=== PATIENT | male | born 1950 | race Two or more races ===

== ENCOUNTER 2017-02-21 01:15 | Inpatient (IN) | payer OTHER ==
[~2017-02-21] VITALS: Ht 175.3 cm; Wt 104.0 kg
[2017-02-21] MEDS ORDERED: hydrALAZINE HCL 20 MG/ML VL IV ONE (01:45)
[2017-02-21] MEDS ORDERED: cloNIDine HCL 0.1 MG TAB PO ONE (03:00)
[2017-02-21] MEDS ORDERED: LISINOPRIL 10 MG TAB PO ONE (03:00)
[2017-02-21] MEDS ORDERED: amLODIPine BESYLATE 5 MG TAB PO ONE (03:00)
[2017-02-21 03:12] LABS: Basophils # (auto) 0 uL; Basophils % (auto) 0.6 % (0.0-2.0); CONDITION Y; Eosinophils # (auto) 0.2 uL; Eosinophils % (auto) 3.3 % (0.0-7.0); Hematocrit 44.6 % (41.0-53.0); Hemoglobin 14.8 g/dL (13.5-17.5); Lymphocytes # (auto) 1.3 uL; Lymphocytes % (auto) 18.6 % (10.0-50.0); Mean Corpuscular Hemoglobin 29.3 pg (28.0-32.0); Mean Corpuscular Hgb Conc. 33.2 g/dL (32.0-36.0); Mean Corpuscular Volume 88.3 fL (80.0-100.0); Mean Platelet Volume 8.3 fL (7.4-10.4); Monocytes # (auto) 0.6 uL; Neutrophils # (auto) 4.9 uL; Neutrophils % (auto) 69.5 % (37.0-80.0); Platelet Count (auto) 298 10^3/uL (140-450); Red Cell Distribution Width 14.6 % (11.6-16.0)
[2017-02-21 03:27] LABS: INR 1.05 (0.9-1.15); Partial Thromboplastin Time 28.1 sec (22.64-33.71); Prothrombin Time 11.4 sec (9.37-12.3)
[2017-02-21 03:29] LABS: Albumin 3.5 g/dL (3.4-5.0); BUN/Creatinine Ratio 10.1; Calcium 8.4 mg/dL (8.5-10.1); Magnesium 2.1 mg/dL (1.6-2.6); Potassium 3.3 mmol/L (3.5-5.1)
[2017-02-21 03:36] LABS: Bilirubin, Total 0.8 mg/dL (0.2-1.0); Total Protein 7.6 g/dL (6.4-8.2)
[2017-02-21 03:37] LABS: B-Type Natriuretic Peptide 24.73 pg/mL (0-100)
[2017-02-21 03:38] LABS: Temperature: 22.4 C (20.0-25.0)
[2017-02-21] MEDS ORDERED: hydrALAZINE HCL 20 MG/ML VL IV PRN (05:15)
[2017-02-21] MEDS ORDERED: HYDROcodone-ACET 5/325MG TAB PO PRN (05:15)
[2017-02-21] MEDS ORDERED: POTASSIUM CHL 20 Meq TABLET PO ONE (05:15)
[2017-02-21] MEDS ORDERED: NITROGLYCERIN 0.4 MG SL TAB SL PRN (05:15)
[2017-02-21] MEDS ORDERED: MORPHINE SULF INJ 2 MG/ML SYRINGE 1ML IV PRN ×2 (05:15)
[2017-02-21] MEDS ORDERED: ACETAMINOPHEN 500 MG TAB PO PRN (05:15)
[2017-02-21] MEDS ORDERED: ONDANSETRON HCL 4 MG/2 ML VIAL IV PRN (05:15)
[2017-02-21] MEDS: hydrALAZINE HCL 25 MG TAB PO SCH ×2 (06:48→14:21)
[2017-02-21 08:27] VITALS: BP 128/86
[2017-02-21] MEDS ORDERED: AMLO5TAB2 PO (08:29)
[2017-02-21] MEDS ORDERED: LISI2.5T47 PO (08:29)
[2017-02-21 08:31] VITALS: BP 128/80
[2017-02-21] MEDS ORDERED: amLODIPine BESYLATE 5 MG TAB PO SCH (10:00)
[2017-02-21] MEDS ORDERED: LISINOPRIL 20 MG TAB PO SCH (10:00)
[2017-02-21 12:36] VITALS: BP 128/88
[2017-02-21 14:54] VITALS: BP 128/88
[2017-02-21 16:40] VITALS: BP 130/84
== END 2017-02-21 16:53 | disposition home or self-care (01) | DRG 204 ==
LOC: EDBD 01:15 → ER 01:17 → OVERFLOW 01:18 → TELE-CENTR 08:27
PROVIDERS: ADMIT Nurse Practitioner Family; ATTEND Nurse Practitioner Family
DX: R04.2 Hemoptysis (principal); N17.9 Acute kidney failure, unspecified; I16.1 Hypertensive emergency; I10 Essential (primary) hypertension; E87.6 Hypokalemia; E66.9 Obesity, unspecified; R04.0 Epistaxis
CPT/HCPCS: 36415; 71010; 80053; 83735; 83880; 84484; 85025; 85610; 85730; 93005; 96374

== ENCOUNTER 2017-06-08 15:58 | Emergency (ER) | payer OTHER, MEDICARE ==
[~2017-06-08] VITALS: Ht 175.3 cm; Wt 106.1 kg
[~2017-06-08 15:58] MED LIST: AMLO5TAB2 PO; LISI2.5T47 PO
[2017-06-08 19:45] VITALS: BP 177/101
== END 2017-06-08 19:53 | disposition home or self-care (01) ==
LOC: ER 15:58
DX: M79.605 Pain in left leg (principal); M79.604 Pain in right leg; I10 Essential (primary) hypertension; R51 Headache
CPT/HCPCS: 93970; 94761

== ENCOUNTER 2021-04-19 23:50 | Emergency (ER) | payer MEDICARE, MEDICAID ==
[~2021-04-19] VITALS: Ht 177.8 cm; Wt 113.4 kg
[~2021-04-19 23:50] MED LIST changes: +AMLO-489 PO; -AMLO5TAB2 PO
[2021-04-20 06:30] VITALS: BP 125/77
== END 2021-04-20 10:54 | disposition home or self-care (01) ==
LOC: ER 23:50
DX: S39.012A Strain of muscle, fascia and tendon of lower back, initial encounter (principal); M47.896 Other spondylosis, lumbar region; I11.0 Hypertensive heart disease with heart failure; I50.9 Heart failure, unspecified; E78.5 Hyperlipidemia, unspecified; Z86.73 Personal history of transient ischemic attack (TIA), and cerebral infarction without residual deficits; Z79.899 Other long term (current) drug therapy; X58.XXXA Exposure to other specified factors, initial encounter; Y93.89 Activity, other specified; Y92.89 Other specified places as the place of occurrence of the external cause; Y99.8 Other external cause status
CPT/HCPCS: 72100; 93005

== ENCOUNTER 2021-11-05 06:42 | Emergency (ER) | payer MEDICARE, MEDICAID ==
[~2021-11-05] VITALS: Ht 177.8 cm; Wt 108.9 kg
[2021-11-05] MEDS ORDERED: HYDROcodone-ACET 10/325MG TAB PO ONE (08:45)
[2021-11-05] MEDS ORDERED: ONDANSETRON ODT 4 MG TAB PO ONE (08:45)
[2021-11-05] MEDS ORDERED: ACE3T PO (09:52)
[2021-11-05 11:05] VITALS: BP 178/84
== END 2021-11-05 11:23 | disposition home or self-care (01) ==
LOC: EDBD 06:42 → ER 06:42
DX: M54.16 Radiculopathy, lumbar region (principal); I11.0 Hypertensive heart disease with heart failure; I50.9 Heart failure, unspecified; Z86.73 Personal history of transient ischemic attack (TIA), and cerebral infarction without residual deficits; Z59.02 Unsheltered homelessness
CPT/HCPCS: 72131; 93005; 99284; Q0162

== ENCOUNTER 2022-04-11 21:50 | Inpatient (IN) | payer MEDICARE, MEDICAID ==
[~2022-04-11] VITALS: Ht 177.8 cm; Wt 103.4 kg
[~2022-04-11 21:50] MED LIST changes: +ACE3T PO
[2022-04-11] MEDS ORDERED: ONDANSETRON HCL 4 MG/2 ML VIAL IV ONE (22:30)
[2022-04-11] MEDS ORDERED: levoFLOXacin 500MG 100 ML IV ONE (22:30)
[2022-04-11] MEDS ORDERED: MORPHINE SULFATE 4 MG/ML SYR/VIAL IV ONE (22:30)
[2022-04-11 22:54] LABS: Basophils # (auto) 0 10 ^3/uL (0-0.2); Basophils % (auto) 0.3 % (0.0-2.0); Eosinophils # (auto) 0.1 10 ^3/uL (0-0.8); Eosinophils % (auto) 0.5 % (0.0-7.0); Hematocrit 42.6 % (41.0-53.0); Hemoglobin 13.4 g/dL (13.5-17.5); Lymphocytes # (auto) 0.7 10 ^3/uL (0.4-5.4); Lymphocytes % (auto) 4.3 % (10.0-50.0); Mean Corpuscular Hemoglobin 27.7 pg (28.0-32.0); Mean Corpuscular Hgb Conc. 31.5 g/dL (32.0-36.0); Monocytes # (auto) 0.6 10 ^3/uL (0-1.3); Monocytes % (auto) 3.5 % (0.0-12.0); Neutrophils # (auto) 15.1 10 ^3/uL (1.6-8.6); Neutrophils % (auto) 91.4 % (37.0-80.0); Red Blood Cells 4.84 10^6/uL (4.5-5.90); Red Cell Distribution Width 14.7 % (11.8-14.3); White Blood Cell 16.5 10^3/uL (4.4-10.8)
[2022-04-11 23:11] LABS: Albumin 3.4 g/dL (3.4-5.0); BUN/Creatinine Ratio 12.6; Calcium 8.5 mg/dL (8.5-10.1); Potassium 4.3 mmol/L (3.5-5.1)
[2022-04-11 23:13] LABS: Bilirubin, Total 0.7 mg/dL (0.2-1.0); Total Protein 7.7 g/dL (6.4-8.2)
[2022-04-11 23:43] LABS: Urine Bacteria NONE SEEN /hpf (None Seen); Urine Blood 3+ /uL (Negative); Urine Specific Gravity 1.013 (1.001-1.035); Urine WBC 14 /hpf (0 - 3)
[2022-04-12] MEDS ORDERED: hydrALAZINE HCL 20 MG/ML VL IV PRN (00:30)
[2022-04-12] MEDS ORDERED: SODIUM CHLORIDE 0.9% 1,000 ML IV SCH (00:30)
[2022-04-12] MEDS ORDERED: ACETAMINOPHEN 325 MG TAB PO PRN (00:30)
[2022-04-12] MEDS ORDERED: HYDROcodone-ACET 5/325MG TAB PO PRN (00:30)
[2022-04-12] MEDS ORDERED: DOCUSATE SOD 100 MG CAP PO PRN (00:30)
[2022-04-12] MEDS ORDERED: ONDANSETRON HCL 4 MG/2 ML VIAL IV PRN (00:30)
[2022-04-12] MEDS ORDERED: MORPHINE SULFATE INJ 2 MG/ml SYRG IV PRN ×2 (00:45→02:00)
[2022-04-12] MEDS ORDERED: NITROGLYCERIN 0.4 MG SL TAB SL PRN (02:00)
[2022-04-12 04:47] LABS: Basophils # (auto) 0 10 ^3/uL (0-0.2); Basophils % (auto) 0.1 % (0.0-2.0); Eosinophils # (auto) 0.1 10 ^3/uL (0-0.8); Eosinophils % (auto) 0.6 % (0.0-7.0); Hematocrit 35.5 % (41.0-53.0); Lymphocytes # (auto) 0.7 10 ^3/uL (0.4-5.4); Lymphocytes % (auto) 6.4 % (10.0-50.0); Mean Corpuscular Hemoglobin 28.3 pg (28.0-32.0); Mean Corpuscular Hgb Conc. 33.8 g/dL (32.0-36.0); Mean Corpuscular Volume 83.7 fL (80.0-100.0); Monocytes # (auto) 0.5 10 ^3/uL (0-1.3); Monocytes % (auto) 4.6 % (0.0-12.0); Neutrophils # (auto) 9.8 10 ^3/uL (1.6-8.6); Neutrophils % (auto) 88.3 % (37.0-80.0); Red Blood Cells 4.25 10^6/uL (4.5-5.90); Red Cell Distribution Width 14.3 % (11.8-14.3); White Blood Cell 11.1 10^3/uL (4.4-10.8)
[2022-04-12 05:06] LABS: Calcium 8.4 mg/dL (8.5-10.1); Potassium 3.9 mmol/L (3.5-5.1)
[2022-04-12 05:09] LABS: Albumin 2.9 g/dL (3.4-5.0); BUN/Creatinine Ratio 14.7
[2022-04-12 05:13] LABS: Bilirubin, Total 0.6 mg/dL (0.2-1.0); Total Protein 6.3 g/dL (6.4-8.2)
[2022-04-12] MEDS ORDERED: ZINC SULFATE 220mg CAP or TAB PO SCH (10:00)
[2022-04-12] MEDS ORDERED: ASCORBIC ACID 500 MG TAB PO SCH (10:00)
[2022-04-12] MEDS: MULTIPLE VITAMIN TAB PO SCH (10:32)
[2022-04-12] MEDS: ENOXAPARIN SOD 40 MG/0.4 ML SYRINGE SC SCH (10:33)
[2022-04-12] MEDS: amLODIPine BESYLATE 5 MG TAB PO SCH (10:45)
[2022-04-12] MEDS: SODIUM CHLORIDE 0.9% 1,000 ML IV SCH ×2 (12:00→22:05)
[2022-04-12 21:44] VITALS: BP 141/78
[2022-04-12] MEDS: levoFLOXacin 500MG 100 ML IV SCH (22:04)
[2022-04-13 04:39] VITALS: BP 137/83
[2022-04-13 04:46] VITALS: BP 137/83
[2022-04-13] MEDS ORDERED: HYDR-3682 PO (05:36)
[2022-04-13] MEDS ORDERED: ATO40T PO (05:36)
[2022-04-13] MEDS ORDERED: AMLO-489 PO (05:36)
[2022-04-13] MEDS ORDERED: OMEP20TA PO (05:36)
[2022-04-13] MEDS ORDERED: CYCL-839 PO (05:36)
[2022-04-13] MEDS ORDERED: LISI40TA11 PO (05:36)
[2022-04-13] MEDS ORDERED: FIN5T PO (05:36)
[2022-04-13] MEDS ORDERED: FURO40TA4 PO (05:36)
[2022-04-13] MEDS ORDERED: APIX5TAB PO (05:37)
[2022-04-13] MEDS ORDERED: HYDR-4296 PO (05:42)
[2022-04-13 06:31] LABS: Potassium 3.8 mmol/L (3.5-5.1)
[2022-04-13 06:38] LABS: Basophils # (auto) 0 10 ^3/uL (0-0.2); Basophils % (auto) 0.3 % (0.0-2.0); Eosinophils # (auto) 0.3 10 ^3/uL (0-0.8); Eosinophils % (auto) 3.5 % (0.0-7.0); Hematocrit 37.4 % (41.0-53.0); Hemoglobin 12.7 g/dL (13.5-17.5); Lymphocytes % (auto) 11.7 % (10.0-50.0); Mean Corpuscular Hemoglobin 28.7 pg (28.0-32.0); Mean Corpuscular Volume 84.5 fL (80.0-100.0); Monocytes # (auto) 0.7 10 ^3/uL (0-1.3); Monocytes % (auto) 7.4 % (0.0-12.0); Neutrophils # (auto) 6.8 10 ^3/uL (1.6-8.6); Neutrophils % (auto) 77.1 % (37.0-80.0); Red Blood Cells 4.42 10^6/uL (4.5-5.90); Red Cell Distribution Width 14.1 % (11.8-14.3); White Blood Cell 8.8 10^3/uL (4.4-10.8)
[2022-04-13 06:42] LABS: Albumin 2.7 g/dL (3.4-5.0); BUN/Creatinine Ratio 11.1; Bilirubin, Total 0.6 mg/dL (0.2-1.0); Calcium 8.2 mg/dL (8.5-10.1); Total Protein 6.8 g/dL (6.4-8.2)
[2022-04-13 08:00] VITALS: BP 140/83
[2022-04-13] MEDS: ENOXAPARIN SOD 40 MG/0.4 ML SYRINGE SC SCH (09:44)
[2022-04-13] MEDS: MULTIPLE VITAMIN TAB PO SCH (09:44)
[2022-04-13] MEDS: amLODIPine BESYLATE 5 MG TAB PO SCH (09:45)
[2022-04-13] MEDS: SODIUM CHLORIDE 0.9% 1,000 ML IV SCH (09:48)
[2022-04-13 12:00] VITALS: BP 114/75
[2022-04-13 16:00] VITALS: BP 129/76
[2022-04-13] MEDS: levoFLOXacin 500MG 100 ML IV SCH (21:09)
[2022-04-13 22:00] VITALS: BP 138/79
[2022-04-14 05:00] VITALS: BP 134/85
[2022-04-14 08:30] VITALS: BP 152/88
[2022-04-14 09:08] VITALS: BP 152/88
[2022-04-14] MEDS: amLODIPine BESYLATE 5 MG TAB PO SCH (10:06)
[2022-04-14] MEDS: MULTIPLE VITAMIN TAB PO SCH (10:06)
[2022-04-14] MEDS: FINASTERIDE 5 MG TAB PO SCH (10:07)
[2022-04-14] MEDS: ENOXAPARIN SOD 40 MG/0.4 ML SYRINGE SC SCH (10:07)
[2022-04-14 13:00] VITALS: BP 141/76
[2022-04-14] MEDS ORDERED: LEVO500T31 PO (13:38)
[2022-04-14] MEDS: levoFLOXacin 500MG 100 ML IV SCH (21:12)
[2022-04-14 22:00] VITALS: BP 129/82
[2022-04-15 05:00] VITALS: BP 141/91
[2022-04-15 08:00] VITALS: BP 152/88
[2022-04-15 08:40] VITALS: BP 150/94
[2022-04-15 09:13] VITALS: BP 141/91
[2022-04-15] MEDS: FINASTERIDE 5 MG TAB PO SCH (09:46)
[2022-04-15] MEDS: ENOXAPARIN SOD 40 MG/0.4 ML SYRINGE SC SCH (09:46)
[2022-04-15] MEDS: MULTIPLE VITAMIN TAB PO SCH (09:46)
[2022-04-15] MEDS: amLODIPine BESYLATE 5 MG TAB PO SCH (09:47)
[2022-04-15 12:37] VITALS: BP 146/96
== END 2022-04-15 16:02 | disposition home health service (06) | DRG 871 ==
LOC: ER 21:51 → OVERFLOW 04-12 01:59 → WEST WING 04-12 20:30
PROVIDERS: ADMIT Nurse Practitioner Family; ATTEND Nurse Practitioner Acute Care
DX: A41.9 Sepsis, unspecified organism (principal); J18.9 Pneumonia, unspecified organism; N13.8 Other obstructive and reflux uropathy; T83.9XXA Unspecified complication of genitourinary prosthetic device, implant and graft, initial encounter; N48.22 Cellulitis of corpus cavernosum and penis; N40.1 Benign prostatic hyperplasia with lower urinary tract symptoms; Z20.822 Contact with and (suspected) exposure to COVID-19; Y84.6 Urinary catheterization as the cause of abnormal reaction of the patient, or of later complication, without mention of misadventure at the time of the procedure; I50.9 Heart failure, unspecified; E78.5 Hyperlipidemia, unspecified; I11.0 Hypertensive heart disease with heart failure; E66.9 Obesity, unspecified; N30.81 Other cystitis with hematuria; Z59.02 Unsheltered homelessness; Z79.899 Other long term (current) drug therapy; Z86.73 Personal history of transient ischemic attack (TIA), and cerebral infarction without residual deficits; Z91.81 History of falling; Y92.89 Other specified places as the place of occurrence of the external cause; Z68.32 Body mass index [BMI] 32.0-32.9, adult
CPT/HCPCS: 36415; 71045; 76705; 80053; 81001; 83036; 83690; 84154; 85025; 87040; 87086; 87426; 93005; 93970; 96361; 96365; 96375; G0378; J1956; J2405

== ENCOUNTER 2022-06-07 19:50 | Inpatient (IN) | payer MEDICARE, MEDICAID ==
[~2022-06-07] VITALS: Ht 193 cm; Wt 108.3 kg
[~2022-06-07 19:50] MED LIST changes: +APIX5TAB PO; +ATO40T PO; +CYCL-839 PO; +FIN5T PO; +FURO40TA4 PO; +HYDR-4296 PO; +LEVO500T31 PO; -LISI2.5T47 PO; +LISI40TA11 PO; +OMEP20TA PO
[2022-06-07 21:13] LABS: Alanine Aminotransferase 21 U/L (16-61); Albumin 3.6 g/dL (3.4-5.0); Anion Gap 10 (5-15); Aspartate Aminotransferase 16 U/L (15-37); BUN/Creatinine Ratio 11.6; Blood Urea Nitrogen 17 mg/dL (7-18); Calcium 9.2 mg/dL (8.5-10.1); Carbon Dioxide 25 mmol/L (21-32); Chloride 105 mmol/L (98-107); GFR African American 61 mL/min; GFR Non-African American 51 mL/min; Glucose 146 mg/dL (74-106); Lipase 89 U/L (73-393); Magnesium 1.9 mg/dL (1.6-2.6); Potassium 3.5 mmol/L (3.5-5.1); Salicylate < 1.7 mg/dL (2.8-20.0); Sodium 140 mmol/L (136-145)
[2022-06-07 21:17] LABS: Alkaline Phosphatase 96 U/L (45-117); Bilirubin, Total 0.6 mg/dL (0.2-1.0); Phosphorus 2.1 mg/dL (2.5-4.90); Total Protein 8.6 g/dL (6.4-8.2)
[2022-06-07 21:18] LABS: Acetaminophen < 2.0 ug/mL (10-30); Blood Alcohol < 3.0 mg/dL (0-5)
[2022-06-07 21:37] LABS: Basophils # (auto) 0 10 ^3/uL (0-0.2); Basophils % (auto) 0.3 % (0.0-2.0); Eosinophils # (auto) 0.2 10 ^3/uL (0-0.8); Eosinophils % (auto) 1.3 % (0.0-7.0); Hematocrit 44.9 % (41.0-53.0); Hemoglobin 14.8 g/dL (13.5-17.5); Lymphocytes # (auto) 1.1 10 ^3/uL (0.4-5.4); Lymphocytes % (auto) 8.7 % (10.0-50.0); Mean Corpuscular Hemoglobin 28.2 pg (28.0-32.0); Mean Corpuscular Hgb Conc. 32.9 g/dL (32.0-36.0); Mean Corpuscular Volume 85.7 fL (80.0-100.0); Monocytes # (auto) 0.8 10 ^3/uL (0-1.3); Monocytes % (auto) 6.4 % (0.0-12.0); Neutrophils # (auto) 10.2 10 ^3/uL (1.6-8.6); Neutrophils % (auto) 83.3 % (37.0-80.0); Nucleated Red Blood Cells % 0.1 %; Red Blood Cells 5.24 10^6/uL (4.5-5.90); Red Cell Distribution Width 15.4 % (11.8-14.3); White Blood Cell 12.2 10^3/uL (4.4-10.8)
[2022-06-07] MEDS ORDERED: cefTRIAXone 1GM/50ML D5W 50 ML IV ONE (23:15)
[2022-06-07] MEDS ORDERED: hydrALAZINE HCL 25 MG TAB PO ONE (23:45)
[2022-06-07] MEDS ORDERED: ONDANSETRON HCL 4 MG/2 ML VIAL IV PRN (23:45)
[2022-06-07] MEDS ORDERED: ACETAMINOPHEN 325 MG TAB PO PRN (23:45)
[2022-06-07] MEDS ORDERED: HYDROcodone-ACET 5/325MG TAB PO PRN (23:45)
[2022-06-08] MEDS ORDERED: MORPHINE SULF 15mg ER tab PO ONE (02:30)
[2022-06-08] MEDS ORDERED: FUROSEMIDE 40 MG TAB PO SCH (06:00)
[2022-06-08 06:22] LABS: BUN/Creatinine Ratio 15.6; Calcium 8.9 mg/dL (8.5-10.1)
[2022-06-08] MEDS: hydrALAZINE HCL 25 MG TAB PO SCH ×3 (06:45→22:08)
[2022-06-08] MEDS: PANTOPRAZOLE 40 MG TAB PO SCH (09:37)
[2022-06-08] MEDS: APIXABAN 5 MG TAB PO SCH ×2 (09:37→22:08)
[2022-06-08] MEDS: LISINOPRIL 20 MG TAB PO SCH (09:42)
[2022-06-08] MEDS: amLODIPine BESYLATE 5 MG TAB PO SCH (11:38)
[2022-06-08 12:59] LABS: Urine Bacteria FEW /hpf (None Seen); Urine Blood 2+ /uL (Negative); Urine Budding Yeast FEW /hpf (None Seen); Urine Specific Gravity 1.018 (1.001-1.035); Urine WBC 41 /hpf (0 - 3)
[2022-06-08 13:11] LABS: Alcohol, Urine < 3.0 mg/dL (0-10); Amphetamine Screen, Urine NEGATIVE (NEGATIVE); Barbiturate Scree,Urine NEGATIVE (NEGATIVE); Benzodiazephine Screen, Urine NEGATIVE (NEGATIVE); Cannabinoid Screen, Urine NEGATIVE (NEGATIVE); Cocaine Screen, Urine NEGATIVE (NEGATIVE); Opiate Scree,Urine POSITIVE (NEGATIVE); Phencyclidine Screen, Urine NEGATIVE (NEGATIVE)
[2022-06-08 13:27] VITALS: BP 138/75
[2022-06-08 22:00] VITALS: BP 120/73
[2022-06-08] MEDS ORDERED: cefTRIAXone 1GM/50ML D5W 50 ML IV SCH (22:00)
[2022-06-08] MEDS: ATORVASTATIN 20 MG TAB PO SCH (22:08)
[2022-06-09 05:00] VITALS: BP 127/76
[2022-06-09] MEDS: hydrALAZINE HCL 25 MG TAB PO SCH ×3 (05:51→22:41)
[2022-06-09 06:29] LABS: BUN/Creatinine Ratio 13.9; Calcium 8.5 mg/dL (8.5-10.1); Potassium 3.6 mmol/L (3.5-5.1)
[2022-06-09 07:13] LABS: Basophils # (auto) 0 10 ^3/uL (0-0.2); Basophils % (auto) 0.7 % (0.0-2.0); Eosinophils # (auto) 0.3 10 ^3/uL (0-0.8); Eosinophils % (auto) 5.1 % (0.0-7.0); Hematocrit 35.3 % (41.0-53.0); Hemoglobin 12.3 g/dL (13.5-17.5); Lymphocytes # (auto) 1.2 10 ^3/uL (0.4-5.4); Lymphocytes % (auto) 17.9 % (10.0-50.0); Mean Corpuscular Hemoglobin 29.6 pg (28.0-32.0); Mean Corpuscular Hgb Conc. 34.7 g/dL (32.0-36.0); Mean Corpuscular Volume 85.2 fL (80.0-100.0); Monocytes # (auto) 0.7 10 ^3/uL (0-1.3); Monocytes % (auto) 10.1 % (0.0-12.0); Neutrophils # (auto) 4.4 10 ^3/uL (1.6-8.6); Neutrophils % (auto) 66.2 % (37.0-80.0); Nucleated Red Blood Cells % 0.1 %; Red Blood Cells 4.15 10^6/uL (4.5-5.90); Red Cell Distribution Width 15.1 % (11.8-14.3)
[2022-06-09 07:15] LABS: White Blood Cell 6.6 10^3/uL (4.4-10.8)
[2022-06-09 09:17] VITALS: BP 129/80
[2022-06-09] MEDS: PANTOPRAZOLE 40 MG TAB PO SCH (10:42)
[2022-06-09] MEDS: amLODIPine BESYLATE 5 MG TAB PO SCH (10:43)
[2022-06-09] MEDS: LISINOPRIL 20 MG TAB PO SCH (10:44)
[2022-06-09] MEDS: APIXABAN 5 MG TAB PO SCH ×2 (10:44→22:42)
[2022-06-09] MEDS ORDERED: VANCOMYCIN PER PHARMACY 0 MG IV SCH (11:30)
[2022-06-09 13:03] VITALS: BP 139/84
[2022-06-09] MEDS: VANCOMYCIN 1GM/250ML 250 ML IV SCH (13:40)
[2022-06-09 16:47] VITALS: BP 137/75
[2022-06-09 22:00] VITALS: BP 136/79
[2022-06-09] MEDS: ATORVASTATIN 20 MG TAB PO SCH (22:42)
[2022-06-10] VITALS (7 sets, daily range): BP systolic 121–147; BP diastolic 71–88
[2022-06-10] MEDS: VANCOMYCIN 1GM/250ML 250 ML IV SCH ×2 (00:36→12:51)
[2022-06-10] MEDS: hydrALAZINE HCL 25 MG TAB PO SCH ×3 (06:00→21:50)
[2022-06-10 06:04] LABS: BUN/Creatinine Ratio 14.6; Calcium 8.7 mg/dL (8.5-10.1); Potassium 3.4 mmol/L (3.5-5.1)
[2022-06-10] MEDS ORDERED: FUROSEMIDE 40 MG TAB PO SCH (10:00)
[2022-06-10] MEDS: amLODIPine BESYLATE 5 MG TAB PO SCH (10:16)
[2022-06-10] MEDS: APIXABAN 5 MG TAB PO SCH ×2 (10:16→21:50)
[2022-06-10] MEDS: PANTOPRAZOLE 40 MG TAB PO SCH (10:16)
[2022-06-10] MEDS: LISINOPRIL 20 MG TAB PO SCH (10:16)
[2022-06-10] MEDS ORDERED: POTASSIUM CHL 20 Meq TABLET PO ONE (12:00)
[2022-06-10] MEDS: ATORVASTATIN 20 MG TAB PO SCH (21:50)
[2022-06-11] MEDS: VANCOMYCIN 1GM/250ML 250 ML IV SCH ×2 (00:22→12:56)
[2022-06-11 05:00] VITALS: BP 150/88
[2022-06-11] MEDS: hydrALAZINE HCL 25 MG TAB PO SCH ×2 (05:37→15:20)
[2022-06-11 05:40] LABS: Calcium 8.6 mg/dL (8.5-10.1); Potassium 3.7 mmol/L (3.5-5.1)
[2022-06-11 08:00] VITALS: BP 140/75
[2022-06-11 08:33] VITALS: BP 135/79
[2022-06-11] MEDS: APIXABAN 5 MG TAB PO SCH (08:58)
[2022-06-11] MEDS: PANTOPRAZOLE 40 MG TAB PO SCH (08:58)
[2022-06-11] MEDS: amLODIPine BESYLATE 5 MG TAB PO SCH (08:58)
[2022-06-11] MEDS ORDERED: LISINOPRIL 20 MG TAB PO SCH (10:00)
[2022-06-11] MEDS ORDERED: ALLO100T PO (10:44)
[2022-06-11] MEDS ORDERED: AMOX500T86 PO (10:44)
[2022-06-11] MEDS ORDERED: NITR-87 PO (10:48)
[2022-06-11 13:16] VITALS: BP 140/75
[2022-06-11 14:51] VITALS: BP 140/75
== END 2022-06-11 16:27 | disposition home or self-care (01) | DRG 872 ==
LOC: EDBD 19:50 → ER 19:53 → OVERFLOW 23:44 → EAST 06-08 14:04 → WEST WING 06-08 17:00
PROVIDERS: ADMIT Nurse Practitioner; ATTEND Internal Medicine
DX: A41.2 Sepsis due to unspecified staphylococcus (principal); N10 Acute pyelonephritis; N13.8 Other obstructive and reflux uropathy; I50.42 Chronic combined systolic (congestive) and diastolic (congestive) heart failure; I11.0 Hypertensive heart disease with heart failure; Z20.822 Contact with and (suspected) exposure to COVID-19; N40.1 Benign prostatic hyperplasia with lower urinary tract symptoms; E66.9 Obesity, unspecified; E78.5 Hyperlipidemia, unspecified; M10.9 Gout, unspecified; Z86.73 Personal history of transient ischemic attack (TIA), and cerebral infarction without residual deficits; Z79.01 Long term (current) use of anticoagulants; Z59.00 Homelessness unspecified; Z68.29 Body mass index [BMI] 29.0-29.9, adult; Z79.899 Other long term (current) drug therapy
CPT/HCPCS: 36415; 71045; 73560; 74176; 80048; 80053; 80202; 80307; 80320; 80329; 81001; 83690; 83735; 83880; 84100; 84484; 84550; 85025; 87040; 87086; 87088; 87186; 87426; 93306; 93970; 96365; G0378; J0696

== ENCOUNTER 2022-07-30 22:12 | Emergency (ER) | payer MEDICARE, MEDICAID ==
[~2022-07-30] VITALS: Ht 177.8 cm; Wt 116.0 kg
[~2022-07-30 22:12] MED LIST changes: +ALLO100T PO; -LEVO500T31 PO; +NITR-87 PO
[2022-07-31] MEDS ORDERED: LIDOCAINE 2% JELLY 11ml (GLYDO) ONE (02:26)
[2022-07-31] MEDS ORDERED: LIDOCAINE 2% JELLY 11ml (GLYDO) UR ONE (02:30)
[2022-07-31 03:02] VITALS: BP 143/78
== END 2022-07-31 03:04 | disposition home or self-care (01) ==
LOC: ER 22:12
DX: T83.091A Other mechanical complication of indwelling urethral catheter, initial encounter (principal); R33.9 Retention of urine, unspecified
CPT/HCPCS: 51702

== ENCOUNTER 2024-04-26 22:20 | Inpatient (IN) | payer MEDICARE ==
[~2024-04-26] VITALS: Ht 177.8 cm; Wt 104.3 kg
[~2024-04-26 22:20] MED LIST changes: -AMLO-489 PO; +AMLO1TAB22 PO; +AMLO1TAB23 PO; -ATO40T PO; +ATOR-507 PO; +GLIP5TAB21 PO; -HYDR-4296 PO; +HYDR25TA88 PO; -LISI40TA11 PO; +LISI40TA16 PO; +TAMS0.4C39 PO
--- NOTE | 2024-04-26 23:37 | ECG ---
[facility] Test Date: 2024-04-26 Test Time: 22:25:25 Pat Name: MATTHEW SINGH Department: er Room: 0232T Gender: M Punch Press Setter: rae : 1950 Requested By: BARB SANTIAGO Order Number: [id number] Reading MD: Evans Thomas Measurements Intervals [place] Rate: 95 P: 94 PA: 186 QRS: -55 QRSD: 128 T: 92 QT: 383 QTc: 482 Interpretive Statements Sinus rhythm Nonspecific IVCD with LAD Left ventricular hypertrophy Electronically Signed On 04-27-2024 12:52:28 PST by Evans Thomas Please click the below link to view image of tracing.
[2024-04-26 23:43] LABS: Urine Bacteria None Seen /hpf (None Seen)
--- NOTE | 2024-04-26 23:57 | ED.PDOC ---
History of Present Illness HPI Comments 73 y/o M, with a Hx of CHF, CKF, CVA, HLD, HTN, obesity, seizures, and UTI's, is BIBA for c/o shortness of breath and productive cough, today. Patient endorses on unprovoked and sudden onset of symptoms, this evening, with green phlegm production associated with cough. Patient states on relief s/p being given breathing Tx by EMS staff en route and having no symptoms at this times. Patient comments on no recent stress, injuries, sick contact, travel, or substance use/exposure along with any further relevant or pertinent past medical, surgical, or family Hx. Chief Complaint: Shortness of Breath Time Seen by MD: 23:30 Primary Care Provider: BOB Reviewed Notes: Nurses Notes, Medications, Allergies Allergies: Coded Allergies: No Known Drug Allergy (Verified Allergy, Unknown, 02/21/17) Home Meds Active Scripts Nitrofurantoin Monohydrate Mac (Macrobid) 100 Mg Cap, 100 MG PO BID for 7 Days, #14 CAP Prov:CHRISTINA CARPIO MD 06/11/22 Allopurinol (Allopurinol) 100 Mg Tab, 200 MG PO DAILY for 30 Days, #60 TAB 2 Refills Prov:CHRISTINA CARPIO MD 06/11/22 Acetaminophen W/ Codeine (Tylenol W/Cod #3) 1 Tab Tb, 1 TAB PO QIDP, #10 TAB 0 Refills Prov:LORRI GEORGE 11/05/21 Reported Medications Hydralazine Hcl (Hydralazine Hcl) 25 Mg Tab, 25 MG PO TID for 30 Days, MG 04/13/22 Apixaban Base (ELIQUIS) 5 Mg Tab, 5 MG PO BID, TAB 04/13/22 Cyclobenzaprine Hcl (Cyclobenzaprine Hcl) 10 Mg Tab, 10 MG PO TID PRN for PAIN SCALE 7 THRU 10 for 30 Days, MG 04/13/22 Atorvastatin Calcium (Lipitor) 40 Mg Tab, 1 TAB PO QPM, #90 TAB 3 Refills 04/13/22 Lisinopril (Lisinopril) 40 Mg Tab, 40 MG PO DAILY for 30 Days, MG 04/13/22 Finasteride (Finasteride) 5 Mg Tab, 5 MG PO DAILY, TAB 04/13/22 Amlodipine Besylate (Amlodipine Besylate) 5 Mg Tab, 10 MG PO DAILY for 30 Days, MG 04/13/22 Omeprazole (Gnp Omeprazole) 20 Mg Tab, 40 MG PO QAM, TAB 04/13/22 Furosemide (Furosemide) 40 Mg Tab, 40 MG PO BIDD for 30 Days, MG 04/13/22 Information Source: Patient, Emergency Med Personnel Mode of Arrival: EMS Severity: Moderate Timing: Hours Duration: Since onset Prehospital treatment: 12 Lead EKG, Breathing Tx, Telegraph Dispatcher Past Medical History PAST MEDICAL HISTORY: CHF, CKF, CVA, High Lipids, HTN, Seizures, UTI'S Past Medical History (Other): obesity Surgical History: Hernia Repair Family History Family History: Reviewed,noncontributory to illness Social History Smoker: Non-Smoker Alcohol: Denies ETOH Use Drugs: Denies Drug Use Lives In: Home Constitutional: denies: chills, diaphoresis, fatigue, fever, malaise, sweats, weakness, others EENTM: denies: blurred vision, double vision, ear bleeding, ear discharge, ear drainage, ear pain, ear ringing, eye pain, eye redness, hearing loss, mouth pain, mouth swelling, nasal discharge, nose bleeding, nose congestion, nose pain, photophobia, tearing, throat pain, throat swelling, voice changes, others Respiratory: reports: cough, shortness of breath; denies: hemoptysis, orthop kannan, SOB at rest, SOB with excertion, stridor, wheezing, others Cardiovascular: denies: chest pain, dizzy spells, diaphoresis, Dyspnea on exertion, edema, irregular heart beat, left arm pain, lightheadedness, palpitations, PND, syncope, others Gastrointestinal: denies: abdomen distended, abdominal pain, blood streaked bowels, constipated, diarrhea, dysphagia, difficulty swallowing, hematemesis, melena, nausea, poor appetite, poor fluid intake, rectal bleeding, rectal pain, vomiting, others Genitourinary: denies: burning, dysuria, flank pain, frequency, hematuria, inco ntinence, penile discharge, penile sore, pain, testicle pain, testicle swelling, urgency, others Neurological: denies: dizziness, fainting, headache, left sided numbness, left sided weakness, numbness, paresthesia, pre-existing deficit, right sided numbness, right sided weakness, seizure, speech problems, tingling, tremors, weakness, others Musculoskeletal: denies: back pain, gout, joint pain, joint swelling, muscle pain, muscle stiffness, neck pain, others Integumetry: denies: bruises, change in color, change in hair/nails, dryness, laceration, lesions, lumps, rash, wounds, others Allergic/Immunocompromised: denies: Difficulty Healing, Frequent Infections, Hives, Itching, others Hematologic/Lymphatic: denies: anemia, blood clots, easy bleeding, easy bruising, swollen glands, others Endocrine: denies: excessive hunger, excessive sweating, excessive thirst, excessive urination, flushing, intolerance to cold, intolerance to heat, unexplained weight gain, unexplained weight loss, others Psychiatric: denies: anxiety, bipolar disorder, depression, hopeless, panic disorder, schizophrenia, sleepless, suicidal, others All Other Systems: Reviewed and Negative Physical Exam General Appearance: No Apparent Distress, Obese HEENT: Normal ENT Inspection, Pharynx Normal, TMs Normal Neck: Full Range of Motion, Non-Tender, Normal, Normal Inspection Respiratory: Chest Non-Tender, No Accessory Muscle Use, Other (coarse breathe sounds, bilaterally) Cardiovascular: No Edema, No JVD, No Murmur, No Gallop, Normal Peripheral Pulses, Regular Rate/Rhythm Breast Exam: Deferred Gastrointestinal: No Organomegaly, Non Tender, No Pulsatile Mass, Normal Bowel Sounds, Soft Genitalia: Deferred Pelvic: Deferred Rectal: Deferred Extremities: No calf tenderness, Normal capillary refill, Normal inspection, Normal range of motion, Non-tender, No pedal edema Musculoskeletal : Apperance: Normal Neurologic: Alert, director style II-XII nml as Tested, No Motor Deficits, Normal Affect, Normal Mood, No Sensory Deficits Cerebellar Function: Normal Reflexes: Normal Skin: Dry, Normal Color, Warm Lymphatic: No Adenopathy Was a procedure done? Was a procedure done?: No EKG EKG : Pulse Rate (adult): 95 [place]: Normal Cardiac Rhythm: NSR Block: None Hypertrophy: None ST: Normal Differential Dx Considerations may include: bronchitis, Covid19, PNA, URI, viral syndrome, asthma exacerbation X-Ray, Labs, Meds, VS Vital Signs Date Time Temp Pulse Resp B/P (MAP) Pulse Ox O2 Delivery O2 Flow Rate FiO2 04/27/24 00:08 18 97 Room Air* 0 21 04/27/24 00:08 97 Room Air* 0 21 04/26/24 23:57 95 04/26/24 22:27 97.8 89 20 174/105 (128) 97 04/26/24 22:25 95 Lab Test 04/27/24 00:30 04/26/24 23:59 04/26/24 23:31 Range/Units Troponin I High Sensitivity Pending 13 </=54 ng/L White Blood Count 8.5 4.4-10.8 10^3/uL Red Blood Count 4.43 L 4.5-5.90 10^6/uL Hemoglobin 12.5 L 13.5-17.5 g/dL Hematocrit 38.0 L 41.0-53.0 % Mean Corpuscular Volume 85.7 80.0-100.0 fL Mean Corpuscular Hemoglobin 28.3 28.0-32.0 pg Mean Corpuscular Hemoglobin Concent 33.0 32.0-36.0 g/dL Red Cell Distribution Width 15.4 H 11.8-14.3 % Platelet Count 333 140-450 10^3/uL Mean Platelet Volume 6.9 6.9-10.8 fL Neutrophils (%) (Auto) 80.5 H 37.0-80.0 % Lymphocytes (%) (Auto) 10.3 10.0-50.0 % Monocytes (%) (Auto) 7.5 0.0-12.0 % Eosinophils (%) (Auto) 1.3 0.0-7.0 % Basophils (%) (Auto) 0.4 0.0-2.0 % Neutrophils # (Auto) 6.8 1.6-8.6 10 ^3/uL Lymphocytes # (Auto) 0.9 0.4-5.4 10 ^3/uL Monocytes # (Auto) 0.6 0-1.3 10 ^3/uL Eosinophils # (Auto) 0.1 0-0.8 10 ^3/uL Basophils # (Auto) 0 0-0.2 10 ^3/uL Nucleated Red Blood Cells 0.1 % Sodium Level 140 136-145 mmol/L Potassium Level 3.7 3.5-5.1 mmol/L Chloride Level 108 H 98-107 mmol/L Carbon Dioxide Level 28 20-31 mmol/L Anion Gap 4 L 5-15 Blood Urea Nitrogen 11 9-23 mg/dL Creatinine 1.34 H 0.700-1.30 mg/dL Glomerular Filtration Rate Calc 57 >90 mL/min BUN/Creatinine Ratio 8.2 L 10.0-20.0 Serum Glucose 130 H 74-106 mg/dL Calcium Level 8.9 8.7-10.4 mg/dL B-Type Natriuretic Peptide 48.77 0-100 pg/mL Urine Color Light-yellow Yellow Urine Clarity Clear Clear Urine pH 7.0 5.0-9.0 Urine Specific [place] 1.012 1.001-1.035 Urine Protein 2+ H Negative Urine Ketones Negative Negative Urine Blood Negative Negative /uL Urine Nitrite Negative Negative Urine Bilirubin Negative Negative Urine Urobilinogen Normal Negative mg/dL Urine Leukocyte Esterase Negative Negative /uL Urine RBC <1 0 - 3 /hpf Urine WBC 2 0 - 3 /hpf Urine Squamous Epithelial Cells None seen <5 /hpf Urine Bacteria None seen None Seen /hpf Urine Glucose Normal Normal mg/dL Current Medications Medications (Trade) Dose Ordered Sig/Kranthi Route Start Time Stop Time Status Last Admin Azithromycin (Zithromax Tablet) 500 mg ONCE ONCE PO 04/26/24 23:45 04/26/24 23:48 DC 04/27/24 00:00 Albuterol (Ventolin Medneb) 5 mg ONCE ONCE NEB 04/26/24 23:45 04/26/24 23:48 DC 04/27/24 00:07 Ipratropium [place] (Atrovent Medneb) 0.5 mg ONCE ONCE NEB 04/26/24 23:45 04/26/24 23:48 DC 04/27/24 00:07 [place] [address] Ph: [phone] DIAGNOSTIC IMAGING Diagnostic Imaging Report : [id number] Signed PATIENT: MATTHEW SINGH ACCT: [id number] UNIT: [id number] : 1950 LOC: ER ROOM / BED: / AGE / SEX: 73 / M ADM STATUS: REG ER SERVICE [id number] ORDERING PHYSICIAN: BARB SANTIAGO MD PROCEDURE(s): CXRP - CHEST PORTABLE REASON: sob ORDER NUMBER(s): [id number], ACCESSION NUMBER(s): [id number] CHEST RADIOGRAPH Indication:sob Technique: Single frontal view of the chest was obtained Comparison: CHEST XRAY 1 VIEW on DOS: 06/07/22, CXR1 on DOS: 06/07/22, CXRP on DOS: 04/14/22 FINDINGS: Lines and Tubes: None Lungs: No focal consolidation. Pleura: No effusion. No pneumothorax. Cardiomediastinal contours: Unremarkable Bones: No acute osseous abnormality. IMPRESSION: No acute cardiopulmonary disease. ATED BY: LEA REYES DO DICTATED DATE/TIME: 04/27/2421 SIGNED BY: LEA REYES DO SIGNED DATE/TIME: 04/27/2421 CC: Time of 1ST Reevaluation: 00:00 Reevaluation 1ST: Unchanged Patient Education/Counseling: Diagnosis, Treatment Family Education/Counseling: No Family Present Departure 1 Departure Time of Disposition: 01:12 (Patient presented with acute shortness of breath concerning for acute on chronic COPD Exacerbation, Pneumonia, ACS, CHF, Pneumothorax. Less likely PE, Dissection. Data: 1. I ordered and reviewed the result of at least 3 labs including a CBC, BMP, and Troponin. 2. I independently interpreted the following tests: Chest X-ray shows benign chest .Risk:This patient has a high risk of morbidity due to further diagnostic testing or treatment and may suffer from respiratory or cardiac etiology . Workup reveals a likely COPD Exacerbation and patient should be admitted for further workup. and possible expert consultation.) Impression: Primary Impression: COPD exacerbation Additional Impression: Shortness of breath Disposition: ADMITTED INPATIENT Admit to: Med Surg Condition: Serious Critical Care Note Critical Care Time?: No Stability Stability form required: No Heart Score Heart Score: Heart Score Response (Comments) Value History Moderate Suspicious 1 EKG Normal 0 Age >65 2 Risk Factors >3 or Hx ASHD 2 Troponin Normal limit 0 Total 5 I personally scribed for BARB SANTIAGO MD ([email or web address]) on 04/26/24 at 23:57. Elec tronically submitted by Brayden Holder ([email or web address]). I personally scribed for BARB SANTIAGO MD ([email or web address]) on 04/27/24 at 00:37. Electronically submitted by Brayden Holder ([email or web address]). BARB SANTIAGO MD Apr 26, 2024 23:57
[2024-04-27] VITALS (14 sets, daily range): BP systolic 147–170; BP diastolic 89–97; PULSE 86–105; RESP 16–20; TEMP 98.4–99.1; O2SAT 94–98
[2024-04-27] MEDS: AZITHROMYCIN 250 MG TAB PO ONE
[2024-04-27 00:05] LABS: Urine Blood Negative /uL (Negative); Urine Clarity Clear (Clear); Urine Color Light-Yellow (Yellow); Urine Protein, UAD 2+ (Negative); Urine Specific Gravity 1.012 (1.001-1.035); Urine Urobilinogen Normal (Negative); Urine WBC 2 /hpf (0 - 3)
[2024-04-27 00:07] LABS: Basophils # (auto) 0 10 ^3/uL (0-0.2); Basophils % (auto) 0.4 % (0.0-2.0); Eosinophils # (auto) 0.1 10 ^3/uL (0-0.8); Eosinophils % (auto) 1.3 % (0.0-7.0); Hemoglobin 12.5 g/dL (13.5-17.5); Lymphocytes # (auto) 0.9 10 ^3/uL (0.4-5.4); Lymphocytes % (auto) 10.3 % (10.0-50.0); Mean Corpuscular Hemoglobin 28.3 pg (28.0-32.0); Mean Corpuscular Volume 85.7 fL (80.0-100.0); Monocytes # (auto) 0.6 10 ^3/uL (0-1.3); Monocytes % (auto) 7.5 % (0.0-12.0); Neutrophils # (auto) 6.8 10 ^3/uL (1.6-8.6); Neutrophils % (auto) 80.5 % (37.0-80.0); Nucleated Red Blood Cells % 0.1 %; Platelet Count (auto) 333 10^3/uL (140-450); Red Blood Cells 4.43 10^6/uL (4.5-5.90); Red Cell Distribution Width 15.4 % (11.8-14.3); White Blood Cell 8.5 10^3/uL (4.4-10.8)
[2024-04-27] MEDS: IPRATROPIUM BROM 0.5 MG/2.5ML INH SOL NEB ONE (00:07)
[2024-04-27] MEDS: ALBUTEROL SULF 2.5 MG/0.5ML(0.5%) NEB SOLN NEB ONE (00:07)
[2024-04-27 00:15] LABS: Chloride 108 mmol/L (98-107); Potassium 3.7 mmol/L (3.5-5.1); Sodium 140 mmol/L (136-145)
[2024-04-27 00:16] LABS: Anion Gap 4 (5-15); Calcium 8.9 mg/dL (8.7-10.4); Carbon Dioxide 28 mmol/L (20-31)
[2024-04-27 00:21] LABS: BUN/Creatinine Ratio 8.2 (10.0-20.0); Blood Urea Nitrogen 11 mg/dL (9-23); Glucose 130 mg/dL (74-106)
--- NOTE | 2024-04-27 00:24 | DVH ---
CHEST RADIOGRAPH Indication:sob Technique: Single frontal view of the chest was obtained Comparison: CHEST XRAY 1 VIEW on DOS: 06/07/22, CXR1 on DOS: 06/07/22, CXRP on DOS: 04/14/22 FINDINGS: Lines and Tubes: None Lungs: No focal consolidation. Pleura: No effusion. No pneumothorax. Cardiomediastinal contours: Unremarkable Bones: No acute osseous abnormality. IMPRESSION: No acute cardiopulmonary disease.
[2024-04-27] MEDS: methylPREDNISolone SOD SUCC 125 MG/2 ML VL IV ONE (01:39)
[2024-04-27] MEDS ORDERED: DEXTROSE (50%) 50ML SYRG IV PRN (03:30)
[2024-04-27] MEDS ORDERED: ALBUTEROL SULF 2.5 MG/0.5ML(0.5%) NEB SOLN NEB PRN (03:30)
[2024-04-27] MEDS ORDERED: IPRATROPIUM BROM 0.5 MG/2.5ML INH SOL NEB PRN (03:30)
[2024-04-27] MEDS ORDERED: ONDANSETRON HCL 4 MG/2 ML VIAL IV PRN (03:30)
[2024-04-27] MEDS ORDERED: ACETAMINOPHEN 325 MG TAB PO PRN (03:30)
[2024-04-27] MEDS ORDERED: TEMAZEPAM 15 MG CAP PO PRN (03:30)
[2024-04-27] MEDS ORDERED: MORPHINE SULFATE INJ 2 MG/ml SYRG IV PRN (03:30)
[2024-04-27] MEDS ORDERED: NITROGLYCERIN 0.4 MG SL TAB SL PRN (03:30)
--- NOTE | 2024-04-27 06:15 | DVHHP2 ---
History of Present Illness Reason for Visit: Shortness of breath History of Present Illness 73 year male presents for evaluation of shortness for breath. Patient endorses a two day history of worsening shortness for breath being relieved by breathing treatments at home. Reports having a productive cough with green phlegm. De nies fever or chills. No other acute complaints reported. Past Medical History CVA, chronic kidney disease, CHF, hypertension, seizures, COPD Past Surgical History Hernia repair Family History Noncontributory Smoke: No ALCOHOL: none Drugs: None Lives: with Family Review of Systems Review of Systems Review of systems are currently negative otherwise addressed in HPI. Allergies: Coded Allergies: No Known Drug Allergy (Verified Allergy, Unknown, 02/21/17) Medications Current Medications Medications Dose Ordered Sig/Kranthi Route Start Time Stop Time Status Last Admin Dose Admin Albuterol 2.5 mg Q6HPRN PRN NEB 04/27/24 03:30 Ipratropium [place] 0.5 mg Q6HPRN PRN NEB 04/27/24 03:30 Azithromycin 250 ml @ 125 mls/hr DAILY IV 04/27/24 10:00 Lisinopril 40 mg DAILY PO 04/27/24 10:00 Amlodipine Besylate 5 mg DAILY PO 04/27/24 10:00 Furosemide 40 mg DAILY PO 04/27/24 10:00 Atorvastatin Calcium 40 mg HS PO 04/27/24 22:00 Tamsulosin HCl 0.4 mg QPM PO 04/27/24 18:00 Apixaban 5 mg BID PO 04/27/24 10:00 Diagnostic Test (Pha) 1 strip ACHS 04/27/24 07:00 Insulin Human Regular ACHS SC 04/27/24 07:00 Dextrose 50 ml UD PRN IV 04/27/24 03:30 Temazepam 15 mg QHSP PRN PO 04/27/24 03:30 Ondansetron HCl 4 mg Q4HP PRN IV 04/27/24 03:30 Acetaminophen 650 mg Q6HP PRN PO 04/27/24 03:30 Nitroglycerin 0.4 mg Q5MINP PRN SL 04/27/24 03:30 Morphine Sulfate 2 mg Q30M PRN IV 04/27/24 03:30 Exam Vital Signs Vital Signs Date Time Temp Pulse Resp B/P (MAP) Pulse Ox O2 Delivery O2 Flow Rate FiO2 04/27/24 05:17 20 162/84 (110) 95 04/27/24 04:10 98.5 89 2.0 28 98.5 04/27/24 04:08 Nasal Cannula Exam Gen: 73-year-old male in mild distress Skin: Warm, dry, normal color and texture, no rash. HEENT: Normocephalic atraumatic, mucous membranes moist and pink. Neck: Cervical and supraclavicular nodes normal without enlargement, trachea is midline, thyroid gland is normal without masses. Pulmonary: Diminished breath sounds bilaterally Cardiac: Regular rate and rhythm. No murmur Abdomen: Soft, nontender, nondistended, bowel sounds present all 4 quadrants, no guarding, no rigidity, no organomegaly. Extremities: No cyanosis, clubbing, no edema Neuro: Cranial nerves II through XII grossly intact, normal affect and speech, no focal motor deficits. Labs/Xrays ORDERING PHYSICIAN: BARB SANTIAGO MD PROCEDURE(s): CXRP - CHEST PORTABLE REASON: sob ORDER NUMBER(s): [id number], ACCESSION NUMBER(s): [id number] CHEST RADIOGRAPH Indication:sob Technique: Single frontal view of the chest was obtained Comparison: CHEST XRAY 1 VIEW on DOS: 06/07/22, CXR1 on DOS: 06/07/22, CXRP on DOS: 04/14/22 FINDINGS: Lines and Tubes: None Lungs: No focal consolidation. Pleura: No effusion. No pneumothorax. Cardiomediastinal contours: Unremarkable Bones: No acute osseous abnormality. IMPRESSION: No acute cardiopulmonary disease. Labs Test 04/27/24 00:30 04/26/24 23:59 04/26/24 23:31 Range/Units Troponin I High Sensitivity 14 </=54 ng/L White Blood Count 8.5 4.4-10.8 10^3/uL Red Blood Count 4.43 L 4.5-5.90 10^6/uL Hemoglobin 12.5 L 13.5-17.5 g/dL Hematocrit 38.0 L 41.0-53.0 % Mean Corpuscular Volume 85.7 80.0-100.0 fL Mean Corpuscular Hemoglobin 28.3 28.0-32.0 pg Mean Corpuscular Hemoglobin Concent 33.0 32.0-36.0 g/dL Red Cell Distribution Width 15.4 H 11.8-14.3 % Platelet Count 333 140-450 10^3/uL Mean Platelet Volume 6.9 6.9-10.8 fL Neutrophils (%) (Auto) 80.5 H 37.0-80.0 % Lymphocytes (%) (Auto) 10.3 10.0-50.0 % Monocytes (%) (Auto) 7.5 0.0-12.0 % Eosinophils (%) (Auto) 1.3 0.0-7.0 % Basophils (%) (Auto) 0.4 0.0-2.0 % Neutrophils # (Auto) 6.8 1.6-8.6 10 ^3/uL Lymphocytes # (Auto) 0.9 0.4-5.4 10 ^3/uL Monocytes # (Auto) 0.6 0-1.3 10 ^3/uL Eosinophils # (Auto) 0.1 0-0.8 10 ^3/uL Basophils # (Auto) 0 0-0.2 10 ^3/uL Nucleated Red Blood Cells 0.1 % Sodium Level 140 136-145 mmol/L Potassium Level 3.7 3.5-5.1 mmol/L Chloride Level 108 H 98-107 mmol/L Carbon Dioxide Level 28 20-31 mmol/L Anion Gap 4 L 5-15 Blood Urea Nitrogen 11 9-23 mg/dL Creatinine 1.34 H 0.700-1.30 mg/dL Glomerular Filtration Rate Calc 57 >90 mL/min BUN/Creatinine Ratio 8.2 L 10.0-20.0 Serum Glucose 130 H 74-106 mg/dL Calcium Level 8.9 8.7-10.4 mg/dL B-Type Natriuretic Peptide 48.77 0-100 pg/mL Urine Color Light-yellow Yellow Urine Clarity Clear Clear Urine pH 7.0 5.0-9.0 Urine Specific [place] 1.012 1.001-1.035 Urine Protein 2+ H Negative Urine Ketones Negative Negative Urine Blood Negative Negative /uL Urine Nitrite Negative Negative Urine Bilirubin Negative Negative Urine Urobilinogen Normal Negative mg/dL Urine Leukocyte Esterase Negative Negative /uL Urine RBC <1 0 - 3 /hpf Urine WBC 2 0 - 3 /hpf Urine Squamous Epithelial Cells None seen <5 /hpf Urine Bacteria None seen None Seen /hpf Urine Glucose Normal Normal mg/dL Assessment/Plan Assessment/Plan Assessment Acute on chronic hypoxic respiratory failure Hypertension COPD CHF Diabetes mellitus Plan Admit the patient to telemetry to the hospitalist David akhtar Azithromycin Resume home medications Continue treatment per orders. Plan discussed with: Patient My Orders Orders - CHRISTINA REN AGACNP Procedure Category Date Status Time Albuterol Medneb PHA 04/27/24 In Process (Ventolin Medneb) 03:30 Ipratropium Medneb PHA 04/27/24 In Process (Atrovent Medneb) 03:30 Azithromycin 500mg/ PHA 04/27/24 In Process 250ml (Zithromax 50 10:00 Lisinopril Tablet PHA 04/27/24 In Process (Zestril Tablet) 10:00 Amlodipine Tablet PHA 04/27/24 In Process (Norvasc Tablet) 10:00 Furosemide Tablet PHA 04/27/24 In Process (Lasix Tablet) 10:00 Atorvastatin (Lipitor) PHA 04/27/24 In Process 22:00 Tamsulosin PHA 04/27/24 In Process Hydrochloride (Flomax) 18:00 Apixaban (Eliquis) PHA 04/27/24 In Process 10:00 Basic Metabolic Panel LAB 04/28/24 Verified 04:00 Glucose Blood PHA 04/27/24 In Process (Accu-Chek Comfort 07:00 Insulin R (Human) PHA 04/27/24 In Process (Insulin R) 07:00 Dextrose 50% Syringe PHA 04/27/24 In Process 03:30 Admit ADMIT 04/27/24 Transmitted 03:26 Temazepam (Restoril) PHA 04/27/24 In Process 03:30 Ondansetron Hcl PHA 04/27/24 In Process (Zofran) 03:30 Cardiac DIET 04/27/24 Transmitted Diet-2gna,Lofat,Lochol Breakfast Condition: Fair RAZA 04/27/24 In Process 03:26 Acetaminophen Tablet PHA 04/27/24 In Process (Tylenol Tablet) 03:30 Bedrest With Bathroom RAZA 04/27/24 In Process Privileg 03:26 Nitroglycerin PHA 04/27/24 In Process Sublingual (Ntrostat 03:30 Morphine Sulfate PHA 04/27/24 In Process Injection 03:30 Stat Ekg For Chest RAZA 04/27/24 In Process Pain 03:26 Notify Md Of Changes [facility] 04/27/24 In Process From Base 03:26 Gravity Meter Operator For [facility] 04/27/24 In Process 24 Hours 03:26 Emergency Dysrhythmia [facility] 04/27/24 In Process Protocol 03:26 Rhythm Strips Once [facility] 04/27/24 In Process Every Shift 03:26 Oxygen By Nasal RT 04/27/24 Transmitted Cannula 03:26 Date of Service: Apr 27, 2024 Billing Provider: CHRISTINA REN Common Visit Codes: [id number] INP/OBS CARE (HIGH) CHRISTINA REN Apr 27, 2024 06:15
[2024-04-27] MEDS: ACCU-CHEK COMFORT CURVE STRIP VI SCH (06:49)
[2024-04-27] MEDS: InsuLIN REG 1unit/0.01ml Soln (100units/ml) SC SCH (06:49)
[2024-04-27] MEDS: amLODIPine BESYLATE 5 MG TAB PO SCH (10:11)
[2024-04-27] MEDS: LISINOPRIL 20 MG TAB PO SCH (10:12)
[2024-04-27] MEDS: APIXABAN 5 MG TAB PO SCH (10:12)
[2024-04-27] MEDS: FUROSEMIDE 40 MG TAB PO SCH (10:13)
[2024-04-27] MEDS: AZITHROMYCIN 500MG/ 250ML 250 ML IV SCH (10:13)
--- NOTE | 2024-04-27 13:37 | DVHPN2 ---
Reviewed: Care Plan, H&P, Labs, Medications, Previous Orders, Radiology Changes from previous H/P or p: No Changes Objective Vitals Vital Signs Date Time Temp Pulse Resp B/P (MAP) Pulse Ox O2 Delivery O2 Flow Rate FiO2 04/27/24 12:50 99.1 99 18 164/94 (117) 94 99.1 04/27/24 05:57 Nasal Cannula* 2 28 Medications Current Medications Medications Dose Ordered Sig/Kranthi Route Start Time Stop Time Status Last Admin Dose Admin Albuterol 2.5 mg Q6HPRN PRN NEB 04/27/24 03:30 Ipratropium [place] 0.5 mg Q6HPRN PRN NEB 04/27/24 03:30 Azithromycin 250 ml @ 125 mls/hr DAILY IV 04/27/24 10:00 04/27/24 10:13 125 MLS/HR Lisinopril 40 mg DAILY PO 04/27/24 10:00 04/27/24 10:12 40 MG Amlodipine Besylate 5 mg DAILY PO 04/27/24 10:00 04/27/24 10:11 5 MG Furosemide 40 mg DAILY PO 04/27/24 10:00 04/27/24 10:13 40 MG Atorvastatin Calcium 40 mg HS PO 04/27/24 22:00 Tamsulosin HCl 0.4 mg QPM PO 04/27/24 18:00 Apixaban 5 mg BID PO 04/27/24 10:00 04/27/24 10:12 5 MG Diagnostic Test (Pha) 1 strip ACHS 04/27/24 07:00 04/27/24 11:50 1 STRIP Insulin Human Regular ACHS SC 04/27/24 07:00 04/27/24 11:49 6 UNITS Dextrose 50 ml UD PRN IV 04/27/24 03:30 Temazepam 15 mg QHSP PRN PO 04/27/24 03:30 Ondansetron HCl 4 mg Q4HP PRN IV 04/27/24 03:30 Acetaminophen 650 mg Q6HP PRN PO 04/27/24 03:30 Nitroglycerin 0.4 mg Q5MINP PRN SL 04/27/24 03:30 Morphine Sulfate 2 mg Q30M PRN IV 04/27/24 03:30 Laboratory Results Laboratory Tests 04/26/24 23:59 Chemistry Test 04/26/24 23:59 Calcium Level 8.9 mg/dL (8.7-10.4) Cardiac Markers Test 04/26/24 23:59 B-Type Natriuretic Peptide 48.77 pg/mL (0-100) Urinalysis Test 04/26/24 23:31 Urine Color Light-yellow (Yellow) Urine Clarity Clear (Clear) Urine pH 7.0 (5.0-9.0) Urine Specific [place] 1.012 (1.001-1.035) Urine Protein 2+ (Negative) H Urine Ketones Negative (Negative) Urine Blood Negative /uL (Negative) Urine Nitrite Negative (Negative) Urine Bilirubin Negative (Negative) Urine Urobilinogen Normal mg/dL (Negative) Urine Leukocyte Esterase Negative /uL (Negative) Urine RBC <1 /hpf (0 - 3) Urine WBC 2 /hpf (0 - 3) Urine Squamous Epithelial Cells None seen /hpf (<5) Urine Bacteria None seen /hpf (None Seen) Urine Glucose Normal mg/dL (Normal) Labs and/or images reviewed: Labs reviewed by me, Image(s) reviewed by me Assessment/Plan Assessment/Plan Acute on chronic hypoxic respiratory failure: Oxygen by nasal cannula Acute COPD exacerbation Possible community-acquired pneumonia: Azithromycin Hypertension Acute CHF exacerbation Diabetes: Insulin sliding scale Will check flu test [place] test and D-dimer Time spent 65 minutes Advanced care planning time 20 minutes Patient is full code Plan discussed with: Patient My Orders Orders - NIKKI RAGLAND MD Procedure Category Date Status Time Rapid Influenza A&B LAB 04/27/24 Logged 13:32 Communication Order ORDERS 04/27/24 Transmitted 13:32 D-Dimer LAB 04/27/24 Transmitted 13:33 Date of Service: Apr 27, 2024 Billing Provider: NIKKI RAGLAND MD Common Visit Codes: [id number] CARE 30-74 MIN NIKKI RAGLAND MD Apr 27, 2024 13:37
[2024-04-27] MEDS: TAMSULOSIN HYDROCHLORIDE 0.4 MG CAP PO SCH (18:16)
[2024-04-27] MEDS: ATORVASTATIN 20 MG TAB PO SCH (22:27)
[2024-04-28] VITALS (11 sets, daily range): BP systolic 157–178; BP diastolic 92–108; PULSE 61–107; RESP 16–22; TEMP 97.8–98.2; O2SAT 92–98
[2024-04-28 01:29] LABS: Rapid Influenza A Negative (Negative); Rapid Influenza B Negative (Negative)
[2024-04-28 01:30] LABS: COVID19 ANTIGEN SOFIA FIA NEGATIVE (NEGATIVE)
[2024-04-28 05:50] LABS: Chloride 106 mmol/L (98-107); Potassium 3.6 mmol/L (3.5-5.1); Sodium 139 mmol/L (136-145)
[2024-04-28 05:51] LABS: Anion Gap 5 (5-15); Carbon Dioxide 28 mmol/L (20-31)
[2024-04-28 05:52] LABS: Calcium 9.2 mg/dL (8.7-10.4)
[2024-04-28 06:49] LABS: BUN/Creatinine Ratio 15.6 (10.0-20.0); Blood Urea Nitrogen 21 mg/dL (9-23); Glucose 119 mg/dL (74-106)
--- NOTE | 2024-04-28 10:21 | DVHPN2 ---
Reviewed: Care Plan, H&P, Labs, Medications, Previous Orders, Radiology Changes from previous H/P or p: No Changes Objective Vitals Vital Signs Date Time Temp Pulse Resp B/P (MAP) Pulse Ox O2 Delivery O2 Flow Rate FiO2 04/28/24 08:52 181/108 04/28/24 05:00 97.9 86 18 96 97.9 04/27/24 21:05 Nasal Cannula* 1 24 Intake/Output Intake and Output 04/28/24 07:00 Intake Total 900 ml Output Total 1850 ml Balance -950 ml Intake Oral 900 ml Output Urine Total 1850 ml Medications Current Medications Medications Dose Ordered Sig/Kranthi Route Start Time Stop Time Status Last Admin Dose Admin Albuterol 2.5 mg Q6HPRN PRN NEB 04/27/24 03:30 Ipratropium Cable 0.5 mg Q6HPRN PRN NEB 04/27/24 03:30 Azithromycin 250 ml @ 125 mls/hr DAILY IV 04/27/24 10:00 04/28/24 08:53 125 MLS/HR Lisinopril 40 mg DAILY PO 04/27/24 10:00 04/28/24 08:52 40 MG Amlodipine Besylate 5 mg DAILY PO 04/27/24 10:00 04/28/24 08:52 5 MG Furosemide 40 mg DAILY PO 04/27/24 10:00 04/28/24 08:51 40 MG Atorvastatin Calcium 40 mg HS PO 04/27/24 22:00 04/27/24 22:27 40 MG Tamsulosin HCl 0.4 mg QPM PO 04/27/24 18:00 04/27/24 18:16 0.4 MG Apixaban 5 mg BID PO 04/27/24 10:00 04/28/24 08:52 5 MG Diagnostic Test (Pha) 1 strip ACHS 04/27/24 07:00 04/28/24 06:59 1 STRIP Insulin Human Regular ACHS SC 04/27/24 07:00 04/27/24 22:28 4 UNITS Dextrose 50 ml UD PRN IV 04/27/24 03:30 Temazepam 15 mg QHSP PRN PO 04/27/24 03:30 Ondansetron HCl 4 mg Q4HP PRN IV 04/27/24 03:30 Acetaminophen 650 mg Q6HP PRN PO 04/27/24 03:30 Nitroglycerin 0.4 mg Q5MINP PRN SL 04/27/24 03:30 Morphine Sulfate 2 mg Q30M PRN IV 04/27/24 03:30 Laboratory Results Laboratory Tests 04/26/24 23:59 04/28/24 04:48 Chemistry Test 04/28/24 04:48 Calcium Level 9.2 mg/dL (8.7-10.4) Coagulation Test 04/27/24 14:19 D-Dimer, Quantitative 1.11 mg/L FEU (0.0-0.49) H Urinalysis Test 04/26/24 23:31 Urine Color Light-yellow (Yellow) Urine Clarity Clear (Clear) Urine pH 7.0 (5.0-9.0) Urine Specific [place] 1.012 (1.001-1.035) Urine Protein 2+ (Negative) H Urine Ketones Negative (Negative) Urine Blood Negative /uL (Negative) Urine Nitrite Negative (Negative) Urine Bilirubin Negative (Negative) Urine Urobilinogen Normal mg/dL (Negative) Urine Leukocyte Esterase Negative /uL (Negative) Urine RBC <1 /hpf (0 - 3) Urine WBC 2 /hpf (0 - 3) Urine Squamous Epithelial Cells None seen /hpf (<5) Urine Bacteria None seen /hpf (None Seen) Urine Glucose Normal mg/dL (Normal) Labs and/or images reviewed: Labs reviewed by me, Image(s) reviewed by me Assessment/Plan Assessment/Plan Acute on chronic hypoxic respiratory failure: Oxygen by nasal cannula Acute COPD exacerbation Possible community-acquired pneumonia: Azithromycin Accelerated hypertension: Increase amlodipine to 10 mg p.o. daily continue lisinopril 40 mg p.o. daily add metoprolol tartrate 50 mg p.o. b.i.d. 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 History of smoking quit 40 years ago BPH: Flomax Hypercholesterolemia: Lipitor Acute CHF exacerbation : Lasix echocardiogram cardiology consult Diabetes: Insulin sliding scale Flu test negative Sabine test negative D-dimer elevated 1.2 Venous ultrasound rule out DVT, CT chest angiogram rule out PE ordered Time spent 65 minutes Patient with multiple comorbidities Patient is full code Plan discussed with: Patient My Orders Orders - NIKKI RAGLAND MD Procedure Category Date Status Time Communication Order ORDERS 04/27/24 Transmitted 13:32 * Water Sponger CONS 04/27/24 Transmitted Consult Date of Service: Apr 28, 2024 Billing Provider: NIKKI RAGLAND MD Common Visit Codes: [id number] CARE 30-74 MIN NIKKI RAGLAND MD Apr 28, 2024 10:21
[2024-04-28 10:50] LABS: LDL Cholesterol 111 mg/dL (< 100); Triglycerides 63 mg/dL (< 150)
[2024-04-28 10:51] LABS: Cholesterol 164 mg/dL (< 200)
[2024-04-28 10:52] LABS: HDL Cholesterol 46 mg/dL (40-59)
--- NOTE | 2024-04-28 11:25 | DVH ---
Bilateral lower extremity venous duplex Clinical History: edema Comparison: BI LOWER DVT on DOS: 06/09/22, BLDVT on DOS: 06/09/22, BI LOWER DVT on DOS: 04/12/22, BLD VT on DOS: 04/12/22 Technique: Duplex Doppler evaluation of the deep venous systems of both lower extremities from the common femora l veins to the popliteal veins including color Doppler and spectral/pulsed waveform analysis was perf ormed. Findings: RIGHT SIDE: The common femoral vein demonstrates appropriate compressibility and waveform variability. There is compressibility/patency of the great saphenous vein at the proximal thigh. The femoral vein demonstrates appropriate compressibility and waveform variability. The deep femoral vein demonstrates appropriate compressibility and waveform variability. The popliteal vein demonstrates appropriate compressibility and waveform variability. There is normal compressibility at the tibioperoneal trunk. LEFT SIDE: The common femoral vein demonstrates appropriate compressibility and waveform variability. There is compressibility/patency of the great saphenous vein at the proximal thigh. The femoral vein demonstrates appropriate compressibility and waveform variability. The deep femoral vein demonstrates appropriate compressibility and waveform variability. The popliteal vein demonstrates appropriate compressibility and waveform variability. There is normal compressibility at the tibioperoneal trunk. Impression: No right or left femoropopliteal venous thrombosis.
[2024-04-28] MEDS: amLODIPine BESYLATE 5 MG TAB PO ONE (12:04)
[2024-04-28] MEDS ORDERED: IOHEXOL 350 MG/ML 100ML IJ ONE (12:46)
--- NOTE | 2024-04-28 13:30 | DVH ---
CTA Chest with intravenous contrast INDICATION: Rule out pulmonary embolism COMPARISON: None TECHNIQUE: Multidetector spiral CTA of the chest was performed of the chest with intravenous contrast . PULMONARY ANGIOGRAPHY PROTOCOL was utilized using a bolus-tracking technique centered on the main p ulmonary artery. Axial, coronal and sagittal multiplanar and MIP reformats were performed. CONTRAST: Type of contrast: Omni 350 Contrast injected: 100 ml Radiation dose : Chest: CTDI volume is 40 mGy. Dose-length product is 923 mGy*cm The dose indicators for CT are the volume computed Tomography (CT) dose Index (CTDIvol) and the dose Length product (DLP), and are measured in units of mGy and mGy-cm, respectively. These indicators are not patient dose, but values generated from the CT scanner acquisition factors. The report includes radiation exposure data for exposures received during this examination. Findings: Pulmonary artery: No pulmonary embolism Lower neck: Normal thyroid. Lungs: Patchy ground-glass opacities in both lungs. Heart/Vascular Structures: Normal heart size. No pericardial effusion. Lymph Nodes: No adenopathy Pleura: No pleural effusion or significant pneumothorax. Musculoskeletal: No acute osseous abnormality. Soft tissues: Normal. Upper abdomen: Limited portions of the upper abdomen are unremarkable. IMPRESSION: 1. No pulmonary embolism. 2. Patchy ground-glass opacities in both lungs likely represent subsegmental atelectasis. No definite acute process. HS:Y
--- NOTE | 2024-04-28 15:44 | DVHSR ---
APPROVED REPORT EXAM: Two-dimensional and M-mode echocardiogram with Doppler and color Doppler. Blood Pressure: 178/108 mmHg INDICATION Heart Failure RISK FACTORS Height: 5'10", Weight: 236 DIMENSIONS LVDd5.4 (3.8-5.7cm)LA (2D)4.7 (1.9-4.0cm)Aortic Root3.5 (2.0-3.7cm) LVDs4.1 (2.5-4.0cm)LA (MM) (1.9-4.0cm)Aortic Cusp Exc2.3 (1.5-2.0cm) EF (%) 44.0 (55-70%)Rt. Atrium3.9 (1.9-4.0cm)Asc. Aorta3.8 cm IVSd1.0 (0.7-1.1cm)RV (D) (1.8-2.4cm) PWd1.3 (0.7-1.1cm) Mitral Valve MitralMitral Stenosis E wave0.69m/sMV Mean GR.mmHg A wave1.06m/sMV Peak GR.mmHg E/A ratio0.72D MVAcm2 DECEL [id number] 1/2 Timems Aortic Valve Aortic ValveAortic Stenosis V10.89m/Vj Mean GR.7mmHg V21.64m/Vj Peak GR.11mmHg LVOT Diameter2.6 (1.8-2.4cm)Doppler AVA2.88cm2 Pulmonic Valve V20.81m/s Tricuspid Valve TR Velocity2.25m/s [id number] Other Information Quality : Technically LimitedRhythm : Technically limited study due to body habitus. Conclusion Moderately reduced left ventricular systolic function in global fashion with estimated ejection fract ion 35-40%. Global wall hypokinesia. Normal right ventricular size and dimension. Mildly reduced left ventricular systolic function. Normal biatrial size and dimension. Normal aortic valve structure and function. Normal mitral valve structure and function. Normal tricuspid valve structure and function. The pulmonary valve is grossly normal. No pericardial effusion.
[2024-04-28] MEDS ORDERED: LEVALBUTEROL HCL 1.25 MG/3 ML NEB NEB PRN (16:15)
[2024-04-28] MEDS: SPIRONOLACTONE 25 MG TAB PO ONE (17:09)
[2024-04-28 17:16] LABS: INR 1.08 (0.9-1.15); Partial Thromboplastin Time 29.1 SEC (24.5-34.5); Prothrombin Time 11.4 sec (9.3-11.8)
[2024-04-28 17:19] LABS: Albumin 3.5 g/dL (3.2-4.8); Bilirubin, Direct 0.1 mg/dL (<0.3); Bilirubin, Total 0.4 mg/dL (0.2-1.0); Magnesium 1.8 mg/dL (1.6-2.6); Phosphorus 2.6 mg/dL (2.4-5.1)
[2024-04-28 17:20] LABS: Total Protein 6.6 g/dL (5.7-8.2)
[2024-04-28] MEDS: METOPROLOL TARTRATE 50 MG TAB PO SCH (22:16)
[2024-04-28 22:59] LABS: Amphetamine Screen, Urine Neg (NEGATIVE); Barbiturate Scree,Urine Neg (NEGATIVE); Benzodiazephine Screen, Urine Neg (NEGATIVE); Cannabinoid Screen, Urine Neg (NEGATIVE); Cocaine Screen, Urine Neg (NEGATIVE); Opiate Scree,Urine Neg (NEGATIVE); Phencyclidine Screen, Urine Neg (NEGATIVE)
[2024-04-29] VITALS (10 sets, daily range): BP systolic 139–184; BP diastolic 75–95; PULSE 63–89; RESP 14–20; TEMP 97.7–98.4; O2SAT 94–98
--- NOTE | 2024-04-29 08:24 | DVHPN2 ---
Reviewed: Care Plan, H&P, Labs, Medications, Previous Orders, Radiology Changes from previous H/P or p: No Changes Objective Vitals Vital Signs Date Time Temp Pulse Resp B/P (MAP) Pulse Ox O2 Delivery O2 Flow Rate FiO2 04/29/24 07:05 95 Nasal Cannula 1.0 04/29/24 07:05 24 04/29/24 04:51 98.4 89 20 160/90 (113) 98.4 Intake/Output Intake and Output 04/29/24 07:00 Intake Total 1320 ml Output Total 1535 ml Balance -215 ml Intake Oral 1320 ml Output Urine Total 1535 ml Medications Current Medications Medications Dose Ordered Sig/Kranthi Route Start Time Stop Time Status Last Admin Dose Admin Ipratropium [place] 0.5 mg Q6HPRN PRN NEB 04/27/24 03:30 Azithromycin 250 ml @ 125 mls/hr DAILY IV 04/27/24 10:00 04/28/24 08:53 125 MLS/HR Furosemide 40 mg DAILY PO 04/27/24 10:00 04/28/24 08:51 40 MG Atorvastatin Calcium 40 mg HS PO 04/27/24 22:00 04/28/24 22:16 40 MG Tamsulosin HCl 0.4 mg QPM PO 04/27/24 18:00 04/28/24 17:09 0.4 MG Apixaban 5 mg BID PO 04/27/24 10:00 04/28/24 22:16 5 MG Diagnostic Test (Pha) 1 strip ACHS 04/27/24 07:00 04/29/24 06:19 1 STRIP Insulin Human Regular ACHS SC 04/27/24 07:00 04/28/24 22:00 2 UNITS Dextrose 50 ml UD PRN IV 04/27/24 03:30 Temazepam 15 mg QHSP PRN PO 04/27/24 03:30 Ondansetron HCl 4 mg Q4HP PRN IV 04/27/24 03:30 Acetaminophen 650 mg Q6HP PRN PO 04/27/24 03:30 Nitroglycerin 0.4 mg Q5MINP PRN SL 04/27/24 03:30 Morphine Sulfate 2 mg Q30M PRN IV 04/27/24 03:30 Amlodipine Besylate 10 mg DAILY PO 04/29/24 10:00 Metoprolol Tartrate 50 mg BID PO 04/28/24 22:00 04/28/24 22:16 50 MG Hydralazine HCl 10 mg Q6HP PRN IV 04/28/24 10:15 Spironolactone 25 mg DAILY PO 04/29/24 10:00 Valsartan 160 mg DAILY PO 04/29/24 10:00 Levalbuterol HCl 0.625 mg Q6HR PRN NEB 04/28/24 16:15 Laboratory Results Laboratory Tests 04/26/24 23:59 04/28/24 04:48 Chemistry Test 04/28/24 16:31 Albumin 3.5 g/dL (3.2-4.8) Magnesium Level 1.8 mg/dL (1.6-2.6) Phosphorus Level 2.6 mg/dL (2.4-5.1) Total Protein 6.6 g/dL (5.7-8.2) Coagulation Test 04/28/24 16:31 Prothrombin Time 11.4 sec (9.3-11.8) Prothrombin Time INR 1.08 (0.9-1.15) Activated Partial Thromboplast Time 29.1 SEC (24.5-34.5) LFT Test 04/28/24 16:31 Alanine Aminotransferase (ALT) 13 U/L (7-40) Alkaline Phosphatase 57 U/L (46-116) Aspartate Amino Transferase (AST) 13 U/L (13-40) Direct Bilirubin 0.1 mg/dL (<0.3) Total Bilirubin 0.4 mg/dL (0.2-1.0) HgA1c, TSH Test 04/28/24 16:31 Hemoglobin A1c 6.5 % A1C (<5.7) H Thyroid Stimulating Hormone (TSH) 1.90 uIU/mL (0.55-4.78) Urinalysis Test 04/26/24 23:31 Urine Color Light-yellow (Yellow) Urine Clarity Clear (Clear) Urine pH 7.0 (5.0-9.0) Urine Specific [place] 1.012 (1.001-1.035) Urine Protein 2+ (Negative) H Urine Ketones Negative (Negative) Urine Blood Negative /uL (Negative) Urine Nitrite Negative (Negative) Urine Bilirubin Negative (Negative) Urine Urobilinogen Normal mg/dL (Negative) Urine Leukocyte Esterase Negative /uL (Negative) Urine RBC <1 /hpf (0 - 3) Urine WBC 2 /hpf (0 - 3) Urine Squamous Epithelial Cells None seen /hpf (<5) Urine Bacteria None seen /hpf (None Seen) Urine Glucose Normal mg/dL (Normal) Labs and/or images reviewed: Labs reviewed by me, Image(s) reviewed by me Assessment/Plan Assessment/Plan Acute on chronic hypoxic respiratory failure: Oxygen by nasal cannula Acute COPD exacerbation Possible community-acquired pneumonia: Azithromycin Accelerated hypertension: Increase amlodipine to 10 mg p.o. daily continue lisinopril 40 mg p.o. daily add metoprolol tartrate 50 mg p.o. b.i.d. 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 History of smoking quit 40 years ago BPH: Flomax Hypercholesterolemia: Lipitor Acute systolic CHF exacerbation : Lasix echocardiogram 35% ejection fraction, cardiology consult pending Diabetes: Insulin sliding scale Flu test negative Sabine test negative D-dimer elevated 1.2 DVT ruled out PE ruled out Time spent 55 minutes Patient with multiple comorbidities Patient is full code Plan discussed with: Patient My Orders Orders - NIKKI RAGLAND MD Procedure Category Date Status Time Bilat Lower Dvt US 04/28/24 Resulted 10:[address] 04/28/24 Resulted Contrast 10:02 Metoprolol Tartrate PHA 04/28/24 In Process Tablet (Lopressor Ta 22:00 Hydralazine Injection PHA 04/28/24 In Process (Apresoline Inject 10:15 Echo 2d Mode Cardiac US 04/28/24 Resulted DOP 10:15 Amlodipine Tablet PHA 04/29/24 In Process (Norvasc Tablet) 10:00 Date of Service: Apr 29, 2024 Billing Provider: NIKKI RAGLAND MD Common Visit Codes: [id number] INP/OBS CARE(HIGH) NIKKI RAGLAND MD Apr 29, 2024 08:24
[2024-04-29] MEDS: amLODIPine BESYLATE 5 MG TAB PO SCH (09:52)
[2024-04-29] MEDS: VALSARTAN 80 MG TAB PO SCH (09:52)
[2024-04-29] MEDS: SPIRONOLACTONE 25 MG TAB PO SCH (09:52)
--- NOTE | 2024-04-29 14:52 | DVHINCON2 ---
Date of service: Apr 29, 2024 History of Present Illness HPI Patient is a 73-year-old gentleman who presented with 1 day of increased productive cough (green in color) and shortness of breath. He has been admitted with possible community-acquired pneumonia. Cardiology is involved for cardiac aspects of care. Patient is known to our practice from outside. Home Meds Reported Medications Tamsulosin Hcl (Tamsulosin Hcl) 0.4 Mg Cap, 1 TAB PO DAILY for 30 Days, #30 04/27/24 Amlodipine Besylate (Amlodipine Besylate) 10 Mg Tab, 1 TAB PO DAILY for 90 Days, #90 04/27/24 Glipizide (Glipizide) 5 Mg Tab, 1 TAB PO DAILY for 90 Days, #90 04/27/24 Apixaban Base (ELIQUIS) 5 Mg Tab, 1 TAB PO BID for 30 Days, #60 04/13/22 Atorvastatin Calcium (Lipitor) 40 Mg Tab, 1 TAB PO QPM for 30 Days, #30 04/13/22 Lisinopril (Lisinopril) 40 Mg Tab, 1 TAB PO DAILY for 90 Days, #90 04/13/22 Furosemide (Furosemide) 40 Mg Tab, 1 TAB PO BID for 90 Days, #90 04/13/22 Past Medical History Others Past medical history includes morbid obesity, COPD, CKD, 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 He is known to have IVCD in EKG. There is questionable history of seizure disorder Family History: No pertinent Hx Smoker: No Hx (Negative) Alocohol: None Drugs: None Lives with: Homeless, Roommate Review of Systems Constitutional: Weakness Ears, Nose, & Throat: No symptom reported Pulmonary/Respiratory: Dyspnea, Cough Cardiovascular: No symptom reported Gastrointestinal: No symptom reported All Other Systems Fourteen point review of system was performed. Relevant findings as per above and as per HPI. Otherwise negative. H&P Exam Vital Signs Vital Signs Date Time Temp Pulse Resp B/P (MAP) Pulse Ox O2 Delivery O2 Flow Rate FiO2 04/29/24 13:00 97.9 64 18 145/95 (112) 98 97.9 04/29/24 08:00 Nasal Cannula* 2 28 General Appeara: Well developed Neck Exam: Normal inspection Eye Exam: bilateral eye Normal inspection, bilateral eye PERRL Mouth: Normal Inspection Pulmonary/Respiratory: Rhonci Cardiovascular/Chest: Normal inspection, Regular rate Peripheral Pulses: 2+ carotid (R), 2+ carotid (L), 2+ femoral (R), 2+ femoral (L), 2+ dorsalis pedis (R), 2+ dorsalis pedis (L), 2+ Radial (R), 2+ Radial (L) Abdominal Exam: Normal bowel sounds, Soft Neuro/Mental St: Alert, Oriented Appearance: Appropriate appearance Eye contact/ Speech: Cooperative Labs/Xrays Labs Test 04/29/24 10:47 04/28/24 22:30 04/28/24 16:31 04/28/24 04:48 Range/Units POC Glucose 130 H 70-106 mg/dl Urine Opiates Screen Neg NEGATIVE Urine Fentanyl Screen Neg NEGATIVE Urine Barbiturates Screen Neg NEGATIVE Urine Phencyclidine Screen Neg NEGATIVE Urine Amphetamines Screen Neg NEGATIVE Urine Benzodiazepines Screen Neg NEGATIVE Urine Cocaine Screen Neg NEGATIVE Urine Cannabinoids Screen Neg NEGATIVE Prothrombin Time 11.4 9.3-11.8 sec Prothrombin Time INR 1.08 0.9-1.15 Activated Partial Thromboplast Time 29.1 24.5-34.5 SEC Hemoglobin A1c 6.5 H <5.7 % A1C Phosphorus Level 2.6 2.4-5.1 mg/dL Magnesium Level 1.8 1.6-2.6 mg/dL Total Bilirubin 0.4 0.2-1.0 mg/dL Direct Bilirubin 0.1 <0.3 mg/dL Aspartate Amino Transferase (AST) 13 13-40 U/L Alanine Aminotransferase (ALT) 13 7-40 U/L Alkaline Phosphatase 57 46-116 U/L Total Protein 6.6 5.7-8.2 g/dL Albumin 3.5 3.2-4.8 g/dL Vitamin B12 Level 226 211-911 pg/mL Vitamin D 25-Hydroxy 35.5 30.0-100 ng/mL Thyroid Stimulating Hormone (TSH) 1.90 0.55-4.78 uIU/mL Sodium Level 139 136-145 mmol/L Potassium Level 3.6 3.5-5.1 mmol/L Chloride Level 106 98-107 mmol/L Carbon Dioxide Level 28 20-31 mmol/L Anion Gap 5 5-15 Blood Urea Nitrogen 21 # 9-23 mg/dL Creatinine 1.35 H 0.700-1.30 mg/dL Glomerular Filtration Rate Calc 56 >90 mL/min BUN/Creatinine Ratio 15.6 10.0-20.0 Serum Glucose 119 H 74-106 mg/dL Calcium Level 9.2 8.7-10.4 mg/dL Triglycerides Level 63 < 150 mg/dL Cholesterol Level 164 < 200 mg/dL LDL Cholesterol 111 H < 100 mg/dL HDL Cholesterol 46 40-59 mg/dL Test 04/28/24 00:10 04/27/24 14:19 04/27/24 00:30 04/26/24 23:59 Range/Units Influenza Type A Antigen Negative Negative Influenza Type B Antigen Negative Negative SARS-CoV-2 Antigen (Rapid) Negative NEGATIVE D-Dimer, Quantitative 1.11 H 0.0-0.49 mg/L FEU Troponin I High Sensitivity 14 </=54 ng/L White Blood Count 8.5 4.4-10.8 10^3/uL Red Blood Count 4.43 L 4.5-5.90 10^6/uL Hemoglobin 12.5 L 13.5-17.5 g/dL Hematocrit 38.0 L 41.0-53.0 % Mean Corpuscular Volume 85.7 80.0-100.0 fL Mean Corpuscular Hemoglobin 28.3 28.0-32.0 pg Mean Corpuscular Hemoglobin Concent 33.0 32.0-36.0 g/dL Red Cell Distribution Width 15.4 H 11.8-14.3 % Platelet Count 333 140-450 10^3/uL Mean Platelet Volume 6.9 6.9-10.8 fL Neutrophils (%) (Auto) 80.5 H 37.0-80.0 % Lymphocytes (%) (Auto) 10.3 10.0-50.0 % Monocytes (%) (Auto) 7.5 0.0-12.0 % Eosinophils (%) (Auto) 1.3 0.0-7.0 % Basophils (%) (Auto) 0.4 0.0-2.0 % Neutrophils # (Auto) 6.8 1.6-8.6 10 ^3/uL Lymphocytes # (Auto) 0.9 0.4-5.4 10 ^3/uL Monocytes # (Auto) 0.6 0-1.3 10 ^3/uL Eosinophils # (Auto) 0.1 0-0.8 10 ^3/uL Basophils # (Auto) 0 0-0.2 10 ^3/uL Nucleated Red Blood Cells 0.1 % B-Type Natriuretic Peptide 48.77 0-100 pg/mL Test 04/26/24 23:31 Range/Units Urine Color Light-yellow Yellow Urine Clarity Clear Clear Urine pH 7.0 5.0-9.0 Urine Specific [place] 1.012 1.001-1.035 Urine Protein 2+ H Negative Urine Ketones Negative Negative Urine Blood Negative Negative /uL Urine Nitrite Negative Negative Urine Bilirubin Negative Negative Urine Urobilinogen Normal Negative mg/dL Urine Leukocyte Esterase Negative Negative /uL Urine RBC <1 0 - 3 /hpf Urine WBC 2 0 - 3 /hpf Urine Squamous Epithelial Cells None seen <5 /hpf Urine Bacteria None seen None Seen /hpf Urine Glucose Normal Normal mg/dL Assessment/Plan Plan Patient is a 73-year-old gentleman who presented with 1 day of increased productive cough (green in color) and shortness of breath. He has been admitted with possible community-acquired pneumonia. Cardiology is involved for cardiac aspects of care. Patient is known to our practice from outside. Not in acute distress. Lying flat in bed. No JVD. No goiter. Not using accessory muscles of breathing. Lungs are clear to auscultation. Cardiac: Regular, no thrill/gallop. Abdomen is soft. Bowel sound is positive. There is no gross mass. Extremities do not reveal edema. There is gross right hemiparesis. 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 He is known to have IVCD in EKG. There is questionable history of seizure disorder Creatinine: 1.34 - 1.35 Potassium: 3.7 - 3.6 BNP: 48.77 Troponin (high sensitive): 13 - 14 D-dimer: 1.11 Urine toxicology was nonrevealing Chest x-ray reported: FINDINGS: Lines and Tubes: None Lungs: No focal consolidation. Pleura: No effusion. No pneumothorax. Cardiomediastinal contours: Unremarkable Bones: No acute osseous abnormality. IMPRESSION: No acute Cardiopulmonary disease. CT angio of the chest reported: Findings: Pulmonary artery: No pulmonary embolism Lower neck: Normal thyroid. Lungs: Patchy ground-glass opacities in bot h lungs. Heart/Vascular Structures: Normal heart size. No pericardial effusion. Lymph Nodes: No adenopathy Pleura: No pleural effusion or significant pneumothorax. Musculoskeletal: No acute osseous abnormality. Soft tissues: Normal. Upper abdomen: Limited portions of the upper abdomen are unremarkable. IMPRESSION: 1. No pulmonary embolism. 2. Patchy ground-glass opacities in both l ungs likely represent subsegmental atelectasis. No definite acute process. Venous Doppler of lower extremities reported: Impression: No right or left femoropopliteal venous thrombosis. EKG reveals sinus rhythm with IVCD Tele reveals sinus rhythm Echocardiogram reported: Moderately reduced left ventricular systolic function in global fashion with estimated ejection fraction 35-40%. Global wall hypokinesia. Normal right ventricular size and dimension. Mildly reduced left ventricular systolic function. Normal biatrial size and dimension. Normal aortic valve structure and function. Normal mitral valve structure and function. Normal tricuspid valve structure and function. The pulmonary valve is grossly normal. No pericardial effusion. Patient is a 73-year-old gentleman who presented with productive cough and shortness of breath. Presentation is in favor of acute on chronic respiratory failure. Presentation also is in favor of COPD exacerbation. Possible commun ity-acquired pneumonia is being entertained. Echocardiogram reported decreased ejection fraction. It is of note that the patient does not have history of heart failure. It is also of note that BNP is normal and against acute heart failure. Even though patient is obese and BNP can be falsely low in obese patients, physical exam of the patient is non-revealing for acute heart failure. I managed to look at the images of the echocardiogram and my impression is that patient's ejection fraction is around 50% and acute heart failure is not considered at this point. It is of note that the patient ran out of his medications around a month ago and was supposed to be on Eliquis for prophylaxis of previous DVTs. It is true that D-dimer was elevated but venous Doppler was against acute DVT and also CT angio ruled out acute pulmonary emboli. Presentation is not considered acute coronary syndrome. Acute on chronic respiratory failure COPD exacerbation Possible community-acquired pneumonia Questionable new onset heart failure History of CVA with right hemiparesis Poor baseline functional capacity At baseline, the patient is homeless History of DVT Ran out of his medications including Eliquis around a month ago Cardiac suggestion for management: Managed on telemetry Gentle diuresis can be justified Follow-up electrolytes and kidney function tests and correct abnormalities Evaluation and management of COPD exacerbation/pneumonia as per primary team/Pulmonary Further evaluation and management depends on the above and clinical course. Thank you for consultation A total of 75 minutes was spent reviewing the patient record, examining the patient, making a diagnostic and therapeutic plan, discussing this plan with medical personnel, following up on diagnostic studies and following the patient for clinical stability excluding any and all procedures. At least 50% of this time was spent in direct, [id number] contact. Thank you for allowing me to participate in this patient's care. Further recommendations will depend on patient's clinical course. Please do not hesitate to contact me if you have any questions or concerns. This medical document was created using electronic medical record system with [employer] computerized dictation system. Although this document has been carefully reviewed, there may still be some phonetic and typographical errors. These areas are purely typographical due to the imperfection of the software programs, and do not reflect any compromise in the patient's medical care. Plan discussed with: Patient, Other (nurse) THOMAS GARZA MD Apr 29, 2024 14:52
[2024-04-30] VITALS (10 sets, daily range): BP systolic 144–156; BP diastolic 71–95; PULSE 66–76; RESP 16–20; TEMP 97.6–98.6; O2SAT 94–98
[2024-04-30] MEDS: hydrALAZINE HCL 20 MG/ML VL IV PRN (00:40)
--- NOTE | 2024-04-30 07:47 | DVHPN2 ---
Progress Note - Dictate Date Seen: Apr 30, 2024 Medical Necessity Reason Pt with a Central, PICC or Fol: No vital signs Vital Sign Date Time Temp Pulse Resp B/P (MAP) Pulse Ox O2 Delivery O2 Flow Rate FiO2 04/30/24 05:00 97.6 73 18 145/95 (112) 94 97.6 04/30/24 03:03 2.0 28 04/29/24 20:00 Room Air* Total Intake and Output 04/29/24 04/29/24 04/30/24 15:00 23:00 07:00 Intake Total 250 ml 600 ml 900 ml Output Total 1400 ml 1100 ml Balance 250 ml -800 ml -200 ml medications Current Medications Medications Dose Ordered Sig/Kranthi Route Start Time Stop Time Status Last Admin Dose Admin Ipratropium [place] 0.5 mg Q6HPRN PRN NEB 04/27/24 03:30 Cancel Azithromycin 250 ml @ 125 mls/hr DAILY IV 04/27/24 10:00 04/29/24 09:53 125 MLS/HR Furosemide 40 mg DAILY PO 04/27/24 10:00 04/29/24 09:51 40 MG Atorvastatin Calcium 40 mg HS PO 04/27/24 22:00 04/29/24 22:19 40 MG Tamsulosin HCl 0.4 mg QPM PO 04/27/24 18:00 04/29/24 17:55 0.4 MG Apixaban 5 mg BID PO 04/27/24 10:00 04/29/24 22:19 5 MG Diagnostic Test (Pha) 1 strip ACHS 04/27/24 07:00 04/30/24 06:13 1 STRIP Insulin Human Regular ACHS SC 04/27/24 07:00 04/29/24 22:10 2 UNITS Dextrose 50 ml UD PRN IV 04/27/24 03:30 Temazepam 15 mg QHSP PRN PO 04/27/24 03:30 Ondansetron HCl 4 mg Q4HP PRN IV 04/27/24 03:30 Acetaminophen 650 mg Q6HP PRN PO 04/27/24 03:30 Nitroglycerin 0.4 mg Q5MINP PRN SL 04/27/24 03:30 Morphine Sulfate 2 mg Q30M PRN IV 04/27/24 03:30 Amlodipine Besylate 10 mg DAILY PO 04/29/24 10:00 04/29/24 09:52 10 MG Metoprolol Tartrate 50 mg BID PO 04/28/24 22:00 04/29/24 22:23 50 MG Hydralazine HCl 10 mg Q6HP PRN IV 04/28/24 10:15 04/30/24 00:40 10 MG Spironolactone 25 mg DAILY PO 04/29/24 10:00 04/29/24 09:52 25 MG Valsartan 160 mg DAILY PO 04/29/24 10:00 04/29/24 09:52 160 MG Levalbuterol HCl 0.625 mg Q6HR PRN NEB 04/28/24 16:15 Cancel laboratory and microbiology Laboratory Tests 04/28/24 04:48 04/26/24 23:59 Test 04/28/24 04:48 Range/Units Serum Glucose 119 H 74-106 mg/dL Assessment/Plan Patient is a 73-year-old gentleman who presented with 1 day of increased productive cough (green in color) and shortness of breath. He has been admitted with possible community-acquired pneumonia. Cardiology is involved for cardiac aspects of care. Patient is known to our practice from outside. Not in acute distress. Lying flat in bed. No JVD. No goiter. Not using accessory muscles of breathing. Lungs are clear to auscultation. Cardiac: Regular, no thrill/gallop. Abdomen is soft. Bowel sound is positive. There is no gross mass. Extremities do not reveal edema. There is gross right hemiparesis. 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 He is known to have IVCD in EKG. There is questionable history of seizure disorder Creatinine: 1.34 - 1.35 Potassium: 3.7 - 3.6 BNP: 48.77 Troponin (high sensitive): 13 - 14 D-dimer: 1.11 TSH: 1.90 Urine toxicology was nonrevealing Chest x-ray reported: FINDINGS: Lines and Tubes: None Lungs: No focal consolidation. Pleura: No effusion. No pneumothorax. Cardiomediastinal contours: Unremarkable Bones: No acute osseous abnormality. IMPRESSION: No acute Cardiopulmonary disease. CT angio of the chest reported: Findings: Pulmonary artery: No pulmonary embolism Lower neck: Normal thyroid. Lungs: Patchy ground-glass opacities in both lungs. Heart/Vascular Structures: Normal heart size. No pericardial effusion. Lymph Nodes: No adenopathy Pleura: No pleural effusion or significant pneumothorax. Musculoskeletal: No acute osseous abnormality. Soft tissues: Normal. Upper abdomen: Limited portions of the upper abdomen are unremarkable. IMPRESSION: 1. No pulmonary embolism. 2. Patchy ground-glass opacities in both lungs likely represent subsegmental atelectasis. No definite acute process. Venous Doppler of lower extremities reported: Impression: No right or left femoropopliteal venous thrombosis. EKG reveals sinus rhythm with IVCD Tele reveals sinus rhythm Echocardiogram reported: Moderately reduced left ventricular systolic function in global fashion with estimated ejection fraction 35-40%. Global wall hypokinesia. Normal right ventricular size and dimension. Mildly reduced left ventricular systolic function. Normal biatrial size and dimension. Normal aortic valve structure and function. Normal mitral valve structure and function. Normal tricuspid valve structure and function. The pulmonary valve is grossly normal. No pericardial effusion. Patient is a 73-year-old gentleman who presented with productive cough and shortness of breath. Presentation is in favor of acute on chronic respiratory failure. Presentation also is in favor of COPD exacerbation. Possible community-acquired pneumonia is being entertained. Echocardiogram reported decreased ejection fraction. It is of note that the patient does not have history of heart failure. It is also of note that BNP is normal and against acute heart failure. Even though patient is obese and BNP can be falsely low in obese patients, physical exam of the patient is non-revealing for acute heart failure. I managed to look at the images of the echocardiogram and my impression is that patient's ejection fraction is around 50% and acute heart failure is not considered at this point. It is of note that the patient ran out of his medications around a month ago and was supposed to be on Eliquis for prophylaxis of previous DVTs. It is true that D-dimer was elevated but venous Doppler was against acute DVT and also CT angio ruled out acute pulmonary emboli. Presentation is not considered acute coronary syndrome. Acute on chronic respiratory failure COPD exacerbation Possible community-acquired pneumonia Questionable new onset heart failure History of CVA with right hemiparesis Poor baseline functional capacity At baseline, the patient is homeless History of DVT Ran out of his medications including Eliquis around a month ago Cardiac suggestion for management: Manage on telemetry Gentle diuresis can be justified Follow-up electrolytes and kidney function tests and correct abnormalities Evaluation and management of COPD exacerbation/pneumonia as per primary team/Pulmonary Further evaluation and management depends on the above and clinical course. Cardiac ferreira, stable A total of 55 minutes was spent reviewing the patient record, examining the patient, making a diagnostic and therapeutic plan, discussing this plan with medical personnel, following up on diagnostic studies and following the patient for clinical stability excluding any and all procedures. At least 50% of this time was spent in direct, [id number] contact. Thank you for allowing me to participate in this patient's care. Further recommendations will depend on patient's clinical course. Please do not hesitate to contact me if you have any questions or concerns. This medical document was created using electronic medical record system with [employer] computerized dictation system. Although this document has been carefully reviewed, there may still be some phonetic and typographical errors. These areas are purely typographical due to the imperfection of the software programs, and do not reflect any compromise in the patient's medical care. Plan discussed with: Patient, Other (nurse) THOMAS GARZA MD Apr 30, 2024 07:47
--- NOTE | 2024-04-30 08:31 | DVHPN2 ---
Reviewed: Care Plan, H&P, Labs, Medications, Previous Orders, Radiology Changes from previous H/P or p: No Changes Objective Vitals Vital Signs Date Time Temp Pulse Resp B/P (MAP) Pulse Ox O2 Delivery O2 Flow Rate FiO2 04/30/24 05:00 97.6 73 18 145/95 (112) 94 97.6 04/30/24 03:03 2.0 28 04/29/24 20:00 Room Air* Intake/Output Intake and Output 04/30/24 07:00 Intake Total 1750 ml Output Total 2500 ml Balance -750 ml Intake Oral 1500 ml IV Total 250 ml Output Urine Total 2500 ml # Voids 4 # Bowel Movements 1 Medications Current Medications Medications Dose Ordered Sig/Kranthi Route Start Time Stop Time Status Last Admin Dose Admin Ipratropium [place] 0.5 mg Q6HPRN PRN NEB 04/27/24 03:30 Cancel Azithromycin 250 ml @ 125 mls/hr DAILY IV 04/27/24 10:00 04/29/24 09:53 125 MLS/HR Furosemide 40 mg DAILY PO 04/27/24 10:00 04/29/24 09:51 40 MG Atorvastatin Calcium 40 mg HS PO 04/27/24 22:00 04/29/24 22:19 40 MG Tamsulosin HCl 0.4 mg QPM PO 04/27/24 18:00 04/29/24 17:55 0.4 MG Apixaban 5 mg BID PO 04/27/24 10:00 04/29/24 22:19 5 MG Diagnostic Test (Pha) 1 strip ACHS 04/27/24 07:00 04/30/24 06:13 1 STRIP Insulin Human Regular ACHS SC 04/27/24 07:00 04/29/24 22:10 2 UNITS Dextrose 50 ml UD PRN IV 04/27/24 03:30 Temazepam 15 mg QHSP PRN PO 04/27/24 03:30 Ondansetron HCl 4 mg Q4HP PRN IV 04/27/24 03:30 Acetaminophen 650 mg Q6HP PRN PO 04/27/24 03:30 Nitroglycerin 0.4 mg Q5MINP PRN SL 04/27/24 03:30 Morphine Sulfate 2 mg Q30M PRN IV 04/27/24 03:30 Amlodipine Besylate 10 mg DAILY PO 04/29/24 10:00 04/29/24 09:52 10 MG Metoprolol Tartrate 50 mg BID PO 04/28/24 22:00 04/29/24 22:23 50 MG Hydralazine HCl 10 mg Q6HP PRN IV 04/28/24 10:15 04/30/24 00:40 10 MG Spironolactone 25 mg DAILY PO 04/29/24 10:00 04/29/24 09:52 25 MG Valsartan 160 mg DAILY PO 04/29/24 10:00 04/29/24 09:52 160 MG Levalbuterol HCl 0.625 mg Q6HR PRN NEB 04/28/24 16:15 Cancel Laboratory Results Laboratory Tests 04/26/24 23:59 04/28/24 04:48 Urinalysis Test 04/26/24 23:31 Urine Color Light-yellow (Yellow) Urine Clarity Clear (Clear) Urine pH 7.0 (5.0-9.0) Urine Specific [place] 1.012 (1.001-1.035) Urine Protein 2+ (Negative) H Urine Ketones Negative (Negative) Urine Blood Negative /uL (Negative) Urine Nitrite Negative (Negative) Urine Bilirubin Negative (Negative) Urine Urobilinogen Normal mg/dL (Negative) Urine Leukocyte Esterase Negative /uL (Negative) Urine RBC <1 /hpf (0 - 3) Urine WBC 2 /hpf (0 - 3) Urine Squamous Epithelial Cells None seen /hpf (<5) Urine Bacteria None seen /hpf (None Seen) Urine Glucose Normal mg/dL (Normal) Labs and/or images reviewed: Labs reviewed by me, Image(s) reviewed by me Assessment/Plan Assessment/Plan Acute on chronic hypoxic respiratory failure: Oxygen by nasal cannula Acute COPD exacerbation Possible community-acquired pneumonia: Azithromycin Accelerated hypertension: Increase amlodipine to 10 mg p.o. daily continue lisinopril 40 mg p.o. daily add metoprolol tartrate 50 mg p.o. b.i.d. 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, ran out of Eliquis one month ago History of CVA with right hemiplegia History of smoking quit 40 years ago BPH: Flomax Hypercholesterolemia: Lipitor Acute systolic CHF exacerbation : Lasix echocardiogram 35% ejection fraction, cardiology consult by Dr. Christiano kim, valsartan spironolactone Diabetes: Insulin sliding scale Flu test negative [place] test negative D-dimer elevated 1.2 DVT ruled out PE ruled out Time spent 55 minutes Noncompliance Patient with multiple comorbidities Patient is full code Plan discussed with: Patient Date of Service: Apr 30, 2024 Billing Provider: NIKKI RAGLAND MD Common Visit Codes: [id number] INP/OBS CARE(HIGH) NIKKI RAGLAND MD Apr 30, 2024 08:31
[2024-05-01 01:00] VITALS: BP 135/80; PULSE 57; RESP 16; TEMP 98.2; O2SAT 96
[2024-05-01 05:00] VITALS: BP 160/86; PULSE 63; RESP 17; TEMP 98.2; O2SAT 96
[2024-05-01 08:00] VITALS: BP 153/96; PULSE 66; PULSE 68; RESP 20; TEMP 97.3; O2SAT 94
--- NOTE | 2024-05-01 08:01 | DVHPN2 ---
Progress Note - Dictate Date Seen: May 01, 2024 Medical Necessity Reason Pt with a Central, PICC or Fol: No vital signs Vital Sign Date Time Temp Pulse Resp B/P (MAP) Pulse Ox O2 Delivery O2 Flow Rate FiO2 05/01/24 05:00 98.2 63 17 160/86 (110) 96 98.2 04/30/24 20:00 Nasal Cannula* 2 28 Total Intake and Output 04/30/24 04/30/24 05/01/24 15:00 23:00 07:00 Intake Total 250 ml 1400 ml 800 ml Output Total 800 ml 1200 ml Balance 250 ml 600 ml -400 ml medications Current Medications Medications Dose Ordered Sig/Kranthi Route Start Time Stop Time Status Last Admin Dose Admin Ipratropium [place] 0.5 mg Q6HPRN PRN NEB 04/27/24 03:30 Cancel Azithromycin 250 ml @ 125 mls/hr DAILY IV 04/27/24 10:00 04/30/24 11:02 125 MLS/HR Furosemide 40 mg DAILY PO 04/27/24 10:00 04/30/24 11:03 40 MG Atorvastatin Calcium 40 mg HS PO 04/27/24 22:00 04/30/24 23:09 40 MG Tamsulosin HCl 0.4 mg QPM PO 04/27/24 18:00 04/30/24 18:34 0.4 MG Apixaban 5 mg BID PO 04/27/24 10:00 04/30/24 23:09 5 MG Diagnostic Test (Pha) 1 strip ACHS 04/27/24 07:00 05/01/24 06:59 1 STRIP Insulin Human Regular ACHS SC 04/27/24 07:00 04/30/24 23:05 6 UNITS Dextrose 50 ml UD PRN IV 04/27/24 03:30 Temazepam 15 mg QHSP PRN PO 04/27/24 03:30 Ondansetron HCl 4 mg Q4HP PRN IV 04/27/24 03:30 Acetaminophen 650 mg Q6HP PRN PO 04/27/24 03:30 Nitroglycerin 0.4 mg Q5MINP PRN SL 04/27/24 03:30 Morphine Sulfate 2 mg Q30M PRN IV 04/27/24 03:30 Amlodipine Besylate 10 mg DAILY PO 04/29/24 10:00 04/30/24 11:02 10 MG Metoprolol Tartrate 50 mg BID PO 04/28/24 22:00 04/30/24 23:09 50 MG Hydralazine HCl 10 mg Q6HP PRN IV 04/28/24 10:15 04/30/24 00:40 10 MG Spironolactone 25 mg DAILY PO 04/29/24 10:00 04/30/24 11:03 25 MG Valsartan 160 mg DAILY PO 04/29/24 10:00 04/30/24 11:25 160 MG Levalbuterol HCl 0.625 mg Q6HR PRN NEB 04/28/24 16:15 Cancel laboratory and microbiology Laboratory Tests 04/28/24 04:48 04/26/24 23:59 Test 04/28/24 04:48 Range/Units Serum Glucose 119 H 74-106 mg/dL Assessment/Plan Patient is a 73-year-old gentleman who presented with 1 day of increased productive cough (green in color) and shortness of breath. He has been admitted with possible community-acquired pneumonia. Cardiology is involved for cardiac aspects of care. Patient is known to our practice from outside. Not in acute distress. Lying flat in bed. No JVD. No goiter. Not using accessory muscles of breathing. Lungs are clear to auscultation. Cardiac: Regular, no thrill/gallop. Abdomen is soft. Bowel sound is positive. There is no gross mass. Extremities do not reveal edema. There is gross right hemiparesis. 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 He is known to have IVCD in EKG. There is questionable history of seizure disorder Creatinine: 1.34 - 1.35 Potassium: 3.7 - 3.6 BNP: 48.77 Troponin (high sensitive): 13 - 14 D-dimer: 1.11 TSH: 1.90 Urine toxicology was nonrevealing Chest x-ray reported: FINDINGS: Lines and Tubes: None Lungs: No focal consolidation. Pleura: No effusion. No pneumothorax. Cardiomediastinal contours: Unremarkable Bones: No acute osseous abnormality. IMPRESSION: No acute Cardiopulmonary disease. CT angio of the chest reported: Findings: Pulmonary artery: No pulmonary embolism Lower neck: Normal thyroid. Lungs: Patchy ground-glass opacities in both lungs. Heart/Vascular Structures: Normal heart size. No pericardial effusion. Lymph Nodes: No adenopathy Pleura: No pleural effusion or significant pneumothorax. Musculoskeletal: No acute osseous abnormality. Soft tissues: Normal. Upper abdomen: Limited portions of the upper abdomen are unremarkable. IMPRESSION: 1. No pulmonary embolism. 2. Patchy ground-glass opacities in both lungs likely represent subsegmental atelectasis. No definite acute process. Venous Doppler of lower extremities reported: Impression: No right or left femoropopliteal venous thrombosis. EKG reveals sinus rhythm with IVCD Tele reveals sinus rhythm Echocardiogram reported: Moderately reduced left ventricular systolic function in global fashion with estimated ejection fraction 35-40%. Global wall hypokinesia. Normal right ventricular size and dimension. Mildly reduced left ventricular systolic function. Normal biatrial size and dimension. Normal aortic valve structure and function. Normal mitral valve structure and function. Normal tricuspid valve structure and function. The pulmonary valve is grossly normal. No pericardial effusion. Patient is a 73-year-old gentleman who presented with productive cough and shortness of breath. Presentation is in favor of acute on chronic respiratory failure. Presentation also is in favor of COPD exacerbation. Possible community-acquired pneumonia is being entertained. Echocardiogram reported decreased ejection fraction. It is of note that the patient does not have history of heart failure. It is also of note that BNP is normal and against acute heart failure. Even though patient is obese and BNP can be falsely low in obese patients, physical exam of the patient is non-revealing for acute heart failure. I managed to look at the images of the echocardiogram and my impression is that patient's ejection fraction is around 50% and acute heart failure is not considered at this point. It is of note that the patient ran out of his medications around a month ago and was supposed to be on Eliquis for prophylaxis of previous DVTs. It is true that D-dimer was elevated but venous Doppler was against acute DVT and also CT angio ruled out acute pulmonary emboli. Presentation is not considered acute coronary syndrome. Acute on chronic respiratory failure COPD exacerbation Possible community-acquired pneumonia Questionable new onset heart failure History of CVA with right hemiparesis Poor baseline functional capacity At baseline, the patient is homeless History of DVT Ran out of his medications including Eliquis around a month ago Cardiac suggestion for management: Manage on telemetry Gentle diuresis can be justified Follow-up electrolytes and kidney function tests and correct abnormalities Evaluation and management of COPD exacerbation/pneumonia as per primary team/Pulmonary Further evaluation and management depends on the above and clinical course. Cardiac ferreira, stable A total of 55 minutes was spent reviewing the patient record, examining the patient, making a diagnostic and therapeutic plan, discussing this plan with medical personnel, following up on diagnostic studies and following the patient for clinical stability excluding any and all procedures. At least 50% of this time was spent in direct, [id number] contact. Thank you for allowing me to participate in this patient's care. Further recommendations will depend on patient's clinical course. Please do not hesitate to contact me if you have any questions or concerns. This medical document was created using electronic medical record system with [employer] computerized dictation system. Although this document has been carefully reviewed, there may still be some phonetic and typographical errors. These areas are purely typographical due to the imperfection of the software programs, and do not reflect any compromise in the patient's medical care. Plan discussed with: Patient, Other (nurse) THOMAS GARZA MD May 01, 2024 08:01
--- NOTE | 2024-05-01 09:32 | DVHPN2 ---
Reviewed: Care Plan, H&P, Labs, Medications, Previous Orders, Radiology Changes from previous H/P or p: No Changes Objective Vitals Vital Signs Date Time Temp Pulse Resp B/P (MAP) Pulse Ox O2 Delivery O2 Flow Rate FiO2 05/01/24 09:06 68 153/96 05/01/24 05:00 98.2 17 96 98.2 04/30/24 20:00 Nasal Cannula* 2 28 Intake/Output Intake and Output 05/01/24 07:00 Intake Total 2450 ml Output Total 2000 ml Balance 450 ml Intake Oral 2200 ml IV Total 250 ml Output Urine Total 2000 ml # Bowel Movements 1 Medications Current Medications Medications Dose Ordered Sig/Kranthi Route Start Time Stop Time Status Last Admin Dose Admin Ipratropium [place] 0.5 mg Q6HPRN PRN NEB 04/27/24 03:30 Cancel Azithromycin 250 ml @ 125 mls/hr DAILY IV 04/27/24 10:00 05/01/24 09:04 125 MLS/HR Furosemide 40 mg DAILY PO 04/27/24 10:00 05/01/24 09:05 40 MG Atorvastatin Calcium 40 mg HS PO 04/27/24 22:00 04/30/24 23:09 40 MG Tamsulosin HCl 0.4 mg QPM PO 04/27/24 18:00 04/30/24 18:34 0.4 MG Apixaban 5 mg BID PO 04/27/24 10:00 05/01/24 09:06 5 MG Diagnostic Test (Pha) 1 strip ACHS 04/27/24 07:00 05/01/24 06:59 1 STRIP Insulin Human Regular ACHS SC 04/27/24 07:00 04/30/24 23:05 6 UNITS Dextrose 50 ml UD PRN IV 04/27/24 03:30 Temazepam 15 mg QHSP PRN PO 04/27/24 03:30 Ondansetron HCl 4 mg Q4HP PRN IV 04/27/24 03:30 Acetaminophen 650 mg Q6HP PRN PO 04/27/24 03:30 Nitroglycerin 0.4 mg Q5MINP PRN SL 04/27/24 03:30 Morphine Sulfate 2 mg Q30M PRN IV 04/27/24 03:30 Amlodipine Besylate 10 mg DAILY PO 04/29/24 10:00 05/01/24 09:05 10 MG Metoprolol Tartrate 50 mg BID PO 04/28/24 22:00 05/01/24 09:06 50 MG Hydralazine HCl 10 mg Q6HP PRN IV 04/28/24 10:15 04/30/24 00:40 10 MG Spironolactone 25 mg DAILY PO 04/29/24 10:00 05/01/24 09:06 25 MG Valsartan 160 mg DAILY PO 04/29/24 10:00 05/01/24 09:05 160 MG Levalbuterol HCl 0.625 mg Q6HR PRN NEB 04/28/24 16:15 Cancel Laboratory Results Laboratory Tests 04/26/24 23:59 04/28/24 04:48 Urinalysis Test 04/26/24 23:31 Urine Color Light-yellow (Yellow) Urine Clarity Clear (Clear) Urine pH 7.0 (5.0-9.0) Urine Specific [place] 1.012 (1.001-1.035) Urine Protein 2+ (Negative) H Urine Ketones Negative (Negative) Urine Blood Negative /uL (Negative) Urine Nitrite Negative (Negative) Urine Bilirubin Negative (Negative) Urine Urobilinogen Normal mg/dL (Negative) Urine Leukocyte Esterase Negative /uL (Negative) Urine RBC <1 /hpf (0 - 3) Urine WBC 2 /hpf (0 - 3) Urine Squamous Epithelial Cells None seen /hpf (<5) Urine Bacteria None seen /hpf (None Seen) Urine Glucose Normal mg/dL (Normal) Labs and/or images reviewed: Labs reviewed by me, Image(s) reviewed by me Assessment/Plan Assessment/Plan Acute on chronic hypoxic respiratory failure: Oxygen by nasal cannula Acute COPD exacerbation Possible community-acquired pneumonia: Azithromycin Accelerated hypertension: Increase amlodipine to 10 mg p.o. daily continue lisinopril 40 mg p.o. daily add metoprolol tartrate 50 mg p.o. b.i.d. 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, ran out of Eliquis one month ago History of CVA with right hemiplegia History of smoking quit 40 years ago BPH: Flomax Hypercholesterolemia: Lipitor Acute systolic CHF exacerbation : Lasix echocardiogram 35% ejection fraction, cardiology consult by Dr. Alvarado appreciated, valsartan spironolactone Diabetes: Insulin sliding scale Flu test negative Sabine test negative D-dimer elevated 1.2 DVT ruled out PE ruled out Time spent 55 minutes Noncompliance Patient with multiple comorbidities Patient will be discharged to nursing home facility for rehab Plan discussed with: Patient Date of Service: May 01, 2024 Billing Provider: NIKKI RAGLAND MD Common Visit Codes: [id number] INP/OBS CARE(HIGH) INKKI RAGLAND MD May 01, 2024 09:32
--- NOTE | 2024-05-01 09:45 | DVHDS2 ---
Discharge Summary Date of Admission Apr 27, 2024 at 03:31 Date of Discharge: May 01, 2024 Admitting Diagnosis Shortness of breaths Wounds: None Labs/Diagnostic Data: Laboratory Results Test 05/01/24 05:25 04/28/24 22:30 04/28/24 16:31 04/28/24 04:48 POC Glucose 107 mg/dl (70-106) Urine Opiates Screen Neg (NEGATIVE) Urine Fentanyl Screen Neg (NEGATIVE) Urine Barbiturates Screen Neg (NEGATIVE) Urine Phencyclidine Screen Neg (NEGATIVE) Urine Amphetamines Screen Neg (NEGATIVE) Urine Benzodiazepines Screen Neg (NEGATIVE) Urine Cocaine Screen Neg (NEGATIVE) Urine Cannabinoids Screen Neg (NEGATIVE) Prothrombin Time 11.4 sec (9.3-11.8) Prothrombin Time INR 1.08 (0.9-1.15) Activated Partial Thromboplast Time 29.1 SEC (24.5-34.5) Hemoglobin A1c 6.5 % A1C (<5.7) Phosphorus Level 2.6 mg/dL (2.4-5.1) Magnesium Level 1.8 mg/dL (1.6-2.6) Total Bilirubin 0.4 mg/dL (0.2-1.0) Direct Bilirubin 0.1 mg/dL (<0.3) Aspartate Amino Transferase (AST) 13 U/L (13-40) Alanine Aminotransferase (ALT) 13 U/L (7-40) Alkaline Phosphatase 57 U/L (46-116) Total Protein 6.6 g/dL (5.7-8.2) Albumin 3.5 g/dL (3.2-4.8) Vitamin B12 Level 226 pg/mL (211-911) Vitamin D 25-Hydroxy 35.5 ng/mL (30.0-100) Thyroid Stimulating Hormone (TSH) 1.90 uIU/mL (0.55-4.78) Sodium Level 139 mmol/L (136-145) Potassium Level 3.6 mmol/L (3.5-5.1) Chloride Level 106 mmol/L (98-107) Carbon Dioxide Level 28 mmol/L (20-31) Anion Gap 5 (5-15) Blood Urea Nitrogen 21 mg/dL (9-23) Creatinine 1.35 mg/dL (0.700-1.30) Glomerular Filtration Rate Calc 56 mL/min (>90) BUN/Creatinine Ratio 15.6 (10.0-20.0) Serum Glucose 119 mg/dL (74-106) Calcium Level 9.2 mg/dL (8.7-10.4) Triglycerides Level 63 mg/dL (< 150) Cholesterol Level 164 mg/dL (< 200) LDL Cholesterol 111 mg/dL (< 100) HDL Cholesterol 46 mg/dL (40-59) Test 04/28/24 00:10 04/27/24 14:19 04/27/24 00:30 04/26/24 23:59 Influenza Type A Antigen Negative (Negative) Influenza Type B Antigen Negative (Negative) SARS-CoV-2 Antigen (Rapid) Negative (NEGATIVE) D-Dimer, Quantitative 1.11 mg/L FEU (0.0-0.49) Troponin I High Sensitivity 14 ng/L (</=54) White Blood Count 8.5 10^3/uL (4.4-10.8) Red Blood Count 4.43 10^6/uL (4.5-5.90) Hemoglobin 12.5 g/dL (13.5-17.5) Hematocrit 38.0 % (41.0-53.0) Mean Corpuscular Volume 85.7 fL (80.0-100.0) Mean Corpuscular Hemoglobin 28.3 pg (28.0-32.0) Mean Corpuscular Hemoglobin Concent 33.0 g/dL (32.0-36.0) Red Cell Distribution Width 15.4 % (11.8-14.3) Platelet Count 333 10^3/uL (140-450) Mean Platelet Volume 6.9 fL (6.9-10.8) Neutrophils (%) (Auto) 80.5 % (37.0-80.0) Lymphocytes (%) (Auto) 10.3 % (10.0-50.0) Monocytes (%) (Auto) 7.5 % (0.0-12.0) Eosinophils (%) (Auto) 1.3 % (0.0-7.0) Basophils (%) (Auto) 0.4 % (0.0-2.0) Neutrophils # (Auto) 6.8 10 ^3/uL (1.6-8.6) Lymphocytes # (Auto) 0.9 10 ^3/uL (0.4-5.4) Monocytes # (Auto) 0.6 10 ^3/uL (0-1.3) Eosinophils # (Auto) 0.1 10 ^3/uL (0-0.8) Basophils # (Auto) 0 10 ^3/uL (0-0.2) Nucleated Red Blood Cells 0.1 % B-Type Natriuretic Peptide 48.77 pg/mL (0-100) Test 04/26/24 23:31 Urine Color Light-yellow (Yellow) Urine Clarity Clear (Clear) Urine pH 7.0 (5.0-9.0) Urine Specific [place] 1.012 (1.001-1.035) Urine Protein 2+ (Negative) Urine Ketones Negative (Negative) Urine Blood Negative /uL (Negative) Urine Nitrite Negative (Negative) Urine Bilirubin Negative (Negative) Urine Urobilinogen Normal mg/dL (Negative) Urine Leukocyte Esterase Negative /uL (Negative) Urine RBC <1 /hpf (0 - 3) Urine WBC 2 /hpf (0 - 3) Urine Squamous Epithelial Cells None seen /hpf (<5) Urine Bacteria None seen /hpf (None Seen) Urine Glucose Normal mg/dL (Normal) Other Laboratory Tests 04/28/24 04:48 04/26/24 23:59 Brief Hx & Hospital Course: 73-year-old male with a history of COPD hypotension bilateral lower extremity DVTs on Eliquis ran out one month ago history of CVA with right hemiplegia history of smoking quit 40 years ago BPH on Flomax hypercholesterolemia on Lipitor congestive heart failure diabetes came in for shortness of breaths. Found to have community-acquired pneumonia treated with azithromycin [place] test negative. 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 Alvarado for CHF exacerbation ejection fraction 35 percent treated with Lasix. patient was placed back on Eliquis for his previous DVT patient had very high blood pressure around systolic 200 when he came in treated with amlodipine lisinopril metoprolol tartrate and hydralazine p.r.n. which has been controlled. Patient has very poor social support and being discharged to longterm facility for rehab and for medication compliance. General condition satisfactory at the time of discharge Consults/Reason for consult Cardiology Dr. Alvarado Operations or Procedures None Condition at Discharge: Fair Final Diagnosis/Problems List Acute on chronic hypoxic respiratory failure: Oxygen by nasal cannula Acute COPD exacerbation Possible community-acquired pneumonia: Azithromycin Accelerated hypertension: Increase amlodipine to 10 mg p.o. daily continue lisinopril 40 mg p.o. daily add metoprolol tartrate 50 mg p.o. b.i.d. 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, ran out of Eliquis one month ago History of CVA with right hemiplegia History of smoking quit 40 years ago BPH: Flomax Hypercholesterolemia: Lipitor Acute systolic CHF exacerbation : Lasix echocardiogram 35% ejection fraction, cardiology consult by Dr. Christiano kim, valsartan spironolactone Diabetes: Insulin sliding scale Flu test negative [place] test negative D-dimer elevated 1.2 DVT ruled out PE ruled out Time spent 55 minutes Noncompliance Patient with multiple comorbidities Discharge Disposition: [facility] Facility Discharge Instruct/Medications Diet: Cardiac 2g Na,low cholest Activity: Light activity Follow Up/Referral: Follow up with the assisted Medications: see list 39 (Time taken for discharge summary 39 minutes) Discharge Statement: "Patient was advised to return to the ER or call 911 if any headaches, dizziness, shortness of breath, chest pain, abdominal pain, bleeding, fevers, or worsening of medical condition. Patient was counseled about treatment plan, medications, possible side effects, patientverbalized understanding. All questions were answered to the best of my ability. This discharge took greater then 30 minutes in planning, reviewing documentation, counseling the patient, and discussing with other team members." ASSESSMENT ASSESSMENT Hospital Course Improved Assessment Acute on chronic hypoxic respiratory failure: Oxygen by nasal cannula Acute COPD exacerbation Possible community-acquired pneumonia: Azithromycin Accelerated hypertension: Increase amlodipine to 10 mg p.o. daily continue lisinopril 40 mg p.o. daily add metoprolol tartrate 50 mg p.o. b.i.d. 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, ran out of Eliquis one month ago History of CVA with right hemiplegia History of smoking quit 40 years ago BPH: Flomax Hypercholesterolemia: Lipitor Acute systolic CHF exacerbation : Lasix echocardiogram 35% ejection fraction, cardiology consult by Dr. Christiano kim, valsartan spironolactone Diabetes: Insulin sliding scale Flu test negative [place] test negative D-dimer elevated 1.2 DVT ruled out PE ruled out Time spent 55 minutes Noncompliance Patient with multiple comorbidities Date of Service: May 01, 2024 Billing Provider: NIKKI RAGLAND MD Common Visit Codes: 84934-NEB/OBS DISCH DAY >30min NIKKI RAGLAND MD May 01, 2024 09:45
[2024-05-01 10:00] VITALS: O2SAT 94
[2024-05-01 12:00] VITALS: BP 132/73; PULSE 67; RESP 20; TEMP 97.9; O2SAT 92
--- NOTE | 2024-05-01 15:13 | CONS ---
Pharmacy Clinical Information: From [facility] Heart Failure Fallout Report, Kevin Gage is a 73 year old male with PMH of COPD, HTN, DVT, CVA, BPH, HLD, CKD, DM, seizures, CHF (LVEF 35 - 40%). His home medications for heart failure include lisinopril. His current inpatient medications include spironolactone, valsartan, and metoprolol tartrate. Consider switching metoprolol tartrate to metoprolol succinate since the heart failure guidelines recommend sustained-release metoprolol to reduce mortality and hospitalizations. Consider initiating SGLT2i since patient has uncontrolled hypertension despite the fact he is on amlodipine, valsartan, metoprolol, furosemide, and spironolactone, and PRN hydralazine. MILI MCCURDY PHARMACIST May 01, 2024 15:13
[2024-05-01 16:00] VITALS: BP 156/87; PULSE 73; RESP 20; TEMP 98.4; O2SAT 94
== END 2024-05-01 20:30 | DRG 177 ==
LOC: ER 22:20 → EDBD 22:20 → TELE 04-27 03:31 → TELE-EAST 04-27 05:44 → TELE-CENTR 04-29 05:45
PROVIDERS: ADMIT Nurse Practitioner; ATTEND Family Medicine
DX: J15.69 Pneumonia due to other Gram-negative bacteria (principal); I50.23 Acute on chronic systolic (congestive) heart failure; J96.21 Acute and chronic respiratory failure with hypoxia; J44.1 Chronic obstructive pulmonary disease with (acute) exacerbation; I69.351 Hemiplegia and hemiparesis following cerebral infarction affecting right dominant side; J44.0 Chronic obstructive pulmonary disease with (acute) lower respiratory infection; Z59.00 Homelessness unspecified; I13.0 Hypertensive heart and chronic kidney disease with heart failure and stage 1 through stage 4 chronic kidney disease, or unspecified chronic kidney disease; Z20.822 Contact with and (suspected) exposure to COVID-19; J15.9 Unspecified bacterial pneumonia; E11.22 Type 2 diabetes mellitus with diabetic chronic kidney disease; F32.A Depression, unspecified; F41.9 Anxiety disorder, unspecified; N40.0 Benign prostatic hyperplasia without lower urinary tract symptoms; E78.00 Pure hypercholesterolemia, unspecified; N18.9 Chronic kidney disease, unspecified; Z60.8 Other problems related to social environment; E66.9 Obesity, unspecified; Z86.718 Personal history of other venous thrombosis and embolism; Z79.01 Long term (current) use of anticoagulants; Z87.891 Personal history of nicotine dependence; Z79.84 Long term (current) use of oral hypoglycemic drugs; Z79.899 Other long term (current) drug therapy; Z91.199 Patient's noncompliance with other medical treatment and regimen due to unspecified reason; Z68.33 Body mass index [BMI] 33.0-33.9, adult
CPT/HCPCS: 36415; 71275; 80048; 80061; 80076; 80307; 81001; 82306; 82607; 82962; 83036; 83735; 83880; 84100; 84443; 84484; 85025; 85379; 85610; 85730; 87426; 87804; 93005; 93306; 93970; 94640; 96374; 97163; G0378; J1815